=== PATIENT | female | born 1930 | race Caucasian/White ===

== ENCOUNTER → 2017-10-10 | Outpatient (CLI) | payer MEDICARE ==
[2017-10-10 11:45] LABS: NT-PRO BNP 14210 pg/mL (0-449)
== END | disposition home or self-care (01) ==
LOC: LAB 11:02
DX: R06.00 Dyspnea, unspecified (principal); I13.0 Hypertensive heart and chronic kidney disease with heart failure and stage 1 through stage 4 chronic kidney disease, or unspecified chronic kidney disease; I50.9 Heart failure, unspecified; N18.3 Chronic kidney disease, stage 3 (moderate); E03.9 Hypothyroidism, unspecified; J44.9 Chronic obstructive pulmonary disease, unspecified; I25.2 Old myocardial infarction
CPT/HCPCS: 83880

== ENCOUNTER → 2017-10-13 | Outpatient (CLI) | payer MEDICARE | END | disposition home or self-care (01) | LOC: KCIC CT 12:12 | DX: J43.8 Other emphysema (principal); K44.9 Diaphragmatic hernia without obstruction or gangrene; J16.8 Pneumonia due to other specified infectious organisms; M41.84 Other forms of scoliosis, thoracic region; R59.1 Generalized enlarged lymph nodes | CPT/HCPCS: 71250 ==

== ENCOUNTER → 2017-11-19 | Outpatient (CLI) | payer MEDICARE ==
[2016-08-27 14:25] VITALS: BP 119/66
[~2017-11-19] MED LIST: ALPR0.5T6 PO; AMIT25TA PO; ASPI-482 PO; BENA20TA4 PO; CALC600T4 PO; CLON0.1T PO; COLE1TAB2 PO; DIGO250T17 PO; FAMO-63 PO; FERR324T2 PO; FEXO60TA25 PO; FLUT9.9S NS; GREE1CAP5 PO; LEVO50TA5 PO; METO-269 PO; MULT1TAB52 PO; NISO20TA PO; NITR0.4T SL; OMEG100021 PO; REGADENOSON 0.4 MG/5 ML DISP.SYRIN. IV ONE; VIT1TABL89 PO
--- NOTE | 2017-11-19 12:42 | RAD ---
MR#: [id number] Date of Study: 11/19/2017 Ordering Physician: NATANAEL HILL, Referring Physician: KIRK MOYA Tech: RT Kathy Xiao) (N) APPROVED REPORT Test Type: Pharmacological Stress Nurse/Tech: Anna Ortiz R.N. Test Indications: dyspnea Cardiac History: Mi 1995, htn Medications: see ehr Medical History: see ehr Resting ECG: sr, wide QRS, ST depression noted in mult leads Resting Heart Rate: 86 bpm Resting Blood Pressure: 165/96mmHg Pretest Chest Pain: No chest pain Nurse/Tech Notes lungs cta, heart tones regular Consent: The procedure was explained to the patient in lay terms. Informed consent was witnessed. Carmelo eout was entered into [employer] History and Stress Test performed by RT Cami (R) (N) Pharm. Details Pharmacologic stress testing was performed using 0.4mg per 5ml of regadenoson given intravenously ove r 7-10 seconds. Stress Symptoms No chest pain or symptoms. POST EXERCISE Reason for Termination: Infusion complete Target HR: No Max HR: 132 bpm Max Blood Pressure: 156/76mmHg Chest Pain: No. Arrhythmia: Yes. occasional PAC ST Change: No. continued ST depression noted in mult leads INTERPRETATION Stress EKG Conclusion: No evidence of stress induced ischemic changes. Imaging Protocol IMAGE PROTOCOL: Rest Tc-99m/stress Tc-99m 1 day Rest: Stress: Viability: Radiopharm.Tc99m OjevwbfsnEp18h Sestamibi Qshf05hTd 34mCi Duration 13min. 13min. Img Date 11/19/2017 11/19/2017 Inj-Img [id number]. 50min. Rest Admin Site:IV - Right AntecubitalAdministrator:RT Kathy Almanza)(N) Stress Admin Site: IV - Right AntecubitalAdministrator: RT Kathy Almanza)(N) STRESS DATA End Diast. Vol.57.0mlLVEDV index BSA37.0ml End Syst. Vol.26.0mlLVESV index BSA16.0ml Myocardial Dddo180.0gEject. Dnqmbatp37.0% Stress Scores Regional WT3.00Summed WT24.00 Regional WM1.00Summed WM26.00 LV Perfusion Moderate sized, severe in intensity reversible apical perfusion defect suggestive of ischemia in the distal LAD territory with TID suggestive of multivessel disease. Wall Motion Low normal LV function LV Perf. Quant 17 Seg. SSS5.00 17 Seg. SRS0.00 17 Seg. SDS5.00 Stress Defect Extent (% LAD)31.30Rest Defect Extent (% LAD)0.00Rev. Defect Extent (% LAD)31.30 Stress Defect Extent (% LCX) 0.00Rest Defect Extent (% LCX)0.00Rev. Defect Extent (% LCX)0.00 Stress Defect Extent (% RCA)0.00Rest Defect Extent (% RCA)0.00Rev. Defect Extent (% RCA)0.00 Stress Defect Extent (% YEVGENIY)14.60Rest Defect Extent (% YEVGENIY)0.00Rev. Defect Extent (% YEVGENIY)14.30 Other Information Quality:Average Risk Assessment: Moderate-High Risk Conclusion 1. No evidence of stress induced EKG changes. 2. 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 3. Low normal EF at 53% 4. Moderate to high risk study Signed by : Rudy Tam, Electronically Approved : 11/19/2017 12:42:29
== END | disposition home or self-care (01) ==
LOC: NM 08:53
PROVIDERS: ATTEND Internal Medicine Cardiovascular Disease
DX: R06.09 Other forms of dyspnea (principal); I13.0 Hypertensive heart and chronic kidney disease with heart failure and stage 1 through stage 4 chronic kidney disease, or unspecified chronic kidney disease; I50.9 Heart failure, unspecified; N18.3 Chronic kidney disease, stage 3 (moderate); E78.00 Pure hypercholesterolemia, unspecified; J43.8 Other emphysema; I25.10 Atherosclerotic heart disease of native coronary artery without angina pectoris; E03.9 Hypothyroidism, unspecified; Z87.891 Personal history of nicotine dependence; Z90.49 Acquired absence of other specified parts of digestive tract
CPT/HCPCS: 78452; 93017; 96374; 96375; 96376; A9500; J2785

== ENCOUNTER 2017-11-28 09:09 | Observation (INO) | payer MEDICARE ==
[2017-11-28] VITALS (13 sets, daily range): BP systolic 124–157; BP diastolic 65–74
[~2017-11-28] VITALS: Ht 162.6 cm; Wt 52.2 kg
[~2017-11-28 09:09] MED LIST changes: -REGADENOSON 0.4 MG/5 ML DISP.SYRIN. IV ONE
[2017-11-28] MEDS ORDERED: LIDOCAINE 1% PF 2 ML VIAL. ONE (09:30)
[2017-11-28] MEDS ORDERED: HEPARIN for ARTERIAL LINE 0 ML ONE (09:30)
[2017-11-28] MEDS ORDERED: IODIXANOL 320 MG/ML 100 ML VIAL. ONE (09:30)
--- NOTE | 2017-11-28 10:06 | PDOC ---
MODERATE SEDATION ASSESSMENT RISKS/ALTERNATIVES Risks/Alternatives Risks and alternatives of this type of sedation and procedure discussed with: RISK/ALTERNATIVES: Patient H & P ON CHART H & P H & P on chart and reviewed for co-morbid conditions and appropriate labs. H&P ON CHART: Yes STATUS PREG STATUS ASSESSED: N/A MEDS/ALLERGIES REVIEWED Meds/Allergies Reviewed Medications and Allergies including time and route of recently administered narcotics and sedatives. MEDS/ALLERGIES REVIEWED: Yes ASA RATING ASA RATING: II AIRWAY ASSESSMENT Airway Assessment Airway patency, oral function limitations, presence of caps, crowns, dentures, partials, and ability to extend neck assessed. AIRWAY ASSESSMENT: Yes MALLAMPATI SCORE MALLAMPATI SCORE: II PRE-SEDATION ASSESSMENT PRE-SEDATION ASSESSMENT: Yes NATANAEL HILL MD Nov 28, 2017 10:06
[2017-11-28] MEDS ORDERED: diphenhydrAMINE 50 MG/ML VIAL ONE (10:09)
[2017-11-28] MEDS ORDERED: FAMOTIDINE 20 MG/2 ML VIAL ONE (10:09)
[2017-11-28] MEDS ORDERED: methylPREDNISolone SOD SUCC PF 125 MG/2 ML VIAL. ONE (10:09)
[2017-11-28] MEDS ORDERED: ATOR10TA60 PO (10:11)
[2017-11-28] MEDS ORDERED: UBID50TA PO (10:11)
[2017-11-28] MEDS ORDERED: BIOT10004 PO (10:11)
[2017-11-28] MEDS ORDERED: CHOL10003 PO (10:11)
[2017-11-28] MEDS ORDERED: LISI-334 PO (10:11)
[2017-11-28] MEDS ORDERED: FEXO1TAB27 PO (10:11)
[2017-11-28] MEDS ORDERED: FURO20TA3 PO (10:11)
[2017-11-28] MEDS ORDERED: FAMOTIDINE 20 MG/2 ML VIAL IVP ONE (10:30)
[2017-11-28] MEDS ORDERED: methylPREDNISolone SOD SUCC PF 125 MG/2 ML VIAL. IV ONE (10:30)
[2017-11-28] MEDS ORDERED: diphenhydrAMINE 50 MG/ML VIAL IVP ONE (10:30)
[2017-11-28] MEDS ORDERED: diphenhydrAMINE 50 MG/ML VIAL IM ONE (10:30)
[2017-11-28 10:49] LABS: CALCIUM 9.5 mg/dL (8.5-10.1); CREATININE 1.2 mg/dL (0.6-1.0); GFR 42.3; POTASSIUM 5.1 mmol/L (3.5-5.1)
[2017-11-28] MEDS ORDERED: HEPARIN for IV BOLUS 10,000 UNIT/10 ML VIAL. ONE (10:49)
[2017-11-28] MEDS ORDERED: VERAPAMIL 5 MG/2 ML VIAL. ONE (10:49)
[2017-11-28] MEDS ORDERED: fentaNYL PF VIAL 100 MCG/2 ML VIAL ONE (10:49)
[2017-11-28] MEDS ORDERED: MIDAZOLAM HCL/PF 2 MG/2 ML VIAL. ONE (10:49)
[2017-11-28] MEDS ORDERED: NITROGLYCERIN 200 MCG/2 ML SYRINGE FOR CATH/VASC LAB. ONE (10:50)
[2017-11-28 11:02] LABS: PROTHROMBIN TIME PATIENT 14.1 SEC (11.7-14.0)
[2017-11-28] MEDS ORDERED: BIVALIRUDIN 250 MG VIAL. IV ONE ×2 (11:12→11:30)
[2017-11-28] MEDS ORDERED: IODIXANOL 320 MG/ML 100 ML VIAL. IART ONE (11:30)
[2017-11-28] MEDS ORDERED: NITROGLYCERIN 200 MCG/2 ML SYRINGE FOR CATH/VASC LAB. IART ONE (11:30)
[2017-11-28] MEDS ORDERED: LIDOCAINE 2% PF 2ML VIAL. INJ ONE (11:30)
[2017-11-28] MEDS ORDERED: fentaNYL PF VIAL 100 MCG/2 ML VIAL IV ONE (11:30)
[2017-11-28] MEDS ORDERED: MIDAZOLAM HCL/PF 2 MG/2 ML VIAL. IV ONE (11:30)
[2017-11-28] MEDS ORDERED: CLOPIDOGREL BISULFATE 75 MG TABLET PO ONE (11:30)
[2017-11-28] MEDS ORDERED: VERAPAMIL 5 MG/2 ML VIAL. IART ONE (11:30)
[2017-11-28] MEDS ORDERED: HEPARIN for IV BOLUS 10,000 UNIT/10 ML VIAL. IART ONE (11:30)
[2017-11-28] MEDS ORDERED: ASPIRIN 325 MG TABLET ONE (11:30)
[2017-11-28] MEDS ORDERED: ASPIRIN 325 MG TABLET PO ONE (12:00)
[2017-11-28] MEDS ORDERED: LIDOCAINE 1% PF 2 ML VIAL. INJ ONE (12:00)
--- NOTE | 2017-11-28 12:00 | CARD ---
MR#: [id number] Date of Study: 11/28/2017 Ordering Physician: NATANAEL SNYDER, Referring Physician: NATANAEL SNYDER Tech: RT Jacob (R) APPROVED REPORT Technologist: RT Jacob (R) Nurse: Anna Ortiz R.N. Procedure(s) performed: 1. Left heart catheterization, selective coronary angiography and left ventr iculography via right transradial approach 2. Successful PCI/drug eluting stent placement to the right coronary artery Moderate sedation: 50 minutes INDICATION The indication(s) include : Dyspnea on exertion and positive stress test. PROCEDURE NARRATIVE After explaining the risks, benefits and alternative options, informed consent was obtained from edi ent. Patient was brought to the cardiac Learning Administrator and right wrist was prepped and draped in the usual fashion after confirming a positive modified Christos's test. Arterial access was obtained in the rig t radial artery and a 6 Namibian sheath was inserted. 6 [place]ian Varinder catheter was used to perform segun ective angiography of the left and right coronary arteries. 6 [place] pigtail catheter was used to pe rform left ventriculography. The following findings were noted. FINDINGS 1. Hemodynamics: Left ventricular end-diastolic pressure of 10 mmHg. There was a pullback gradient of 10 mmHg across the aortic valve. 2. Left ventriculography: Normal left ventricle systolic function with ejection fraction estimated at 70%. No significant mitral regurgitation seen. 3. Coronary angiography: a. The left main coronary artery arose from the left sinus of Valsalva, gave rise to the left anteri or descending and left circumflex arteries and did not show any significant stenosis. b. The left anterior descending artery showed 40-50% stenosis in the midsegment. The diagonal branch which is a small to medium caliber vessel showed 90% stenosis in the midsegment. c. The left circumflex artery did not show any significant stenosis. d. The right coronary artery was a large and dominant vessel arising from the right sinus of Valsalv a that showed 70-80% stenosis involving the midsegment. INTERVENTION The right coronary artery was engaged with a 6 [place] JR4 guide catheter and the stenosis in the mids egment was crossed with a 0.014 inch [employer] guidewire. This was predilated with a 3.0 x 15 mm balloon following which this was successfully treated with a 3.0 x 15 mm resolute cruz drug-eluting stent. Follow-up angiography showed resolution of the stenosis to 0% with REJI-3 distal flow. Patient tolerated the procedure well. Hemostasis was achieved using TR band. There were no immediate complic ations. Conclusion 1. 70-80% stenosis involving the right coronary artery, 40-50% stenosis involving the left anterior descending artery and 90% stenosis in a small to medium caliber diagonal branch. 2. Successful PCI/drug eluting stent placement to the right coronary artery. 3. Normal left ventricle systolic function with ejection fraction estimated at 70%. Recommendations Aspirin 325 mg daily for one month and 81 mg daily thereafter Plavix 75 mg daily Signed by : Natanael Snyder, Electronically Approved : 11/28/2017 11:59:59
[2017-11-28] MEDS ORDERED: NITROGLYCERIN SUBLINGUAL 0.4 MG BOTTLE OF 25. SL PRN (12:15)
[2017-11-28] MEDS ORDERED: ACETAMINOPHEN 325 MG TABLET. PO PRN (12:15)
[2017-11-28] MEDS ORDERED: IV 1/2 NORMAL SALINE 1,000 ML IV SCH (12:30)
[2017-11-28] MEDS: LEVOTHYROXINE 75 MCG TABLET PO SCH (15:15)
[2017-11-28] MEDS: METOPROLOL SUCC 24HR ER 50 MG TAB.ER.24H. PO SCH (15:16)
[2017-11-28] MEDS ORDERED: ATORVASTATIN CALCIUM 10 MG TABLET. PO SCH (21:00)
[2017-11-28] MEDS: LISINOPRIL 20 MG TABLET PO SCH (21:20)
[2017-11-28] MEDS: ALPRAZolam 0.5 MG TABLET PO SCH (22:21)
[2017-11-28] MEDS ORDERED: IV NORMAL SALINE 1000ML BAG 1,000 ML IV ONE (22:30)
[2017-11-29 03:23] VITALS: BP 158/75
[2017-11-29] MEDS: LEVOTHYROXINE 75 MCG TABLET PO SCH (06:16)
[2017-11-29 07:30] VITALS: BP 122/70
[2017-11-29] MEDS ORDERED: CLOPIDOGREL BISULFATE 75 MG TABLET PO SCH (08:00)
[2017-11-29] MEDS ORDERED: ASPIRIN ENTERIC COATED 325 MG TABLET.DR. PO SCH (08:00)
[2017-11-29 08:03] LABS: BILIRUBIN,URINE NEGATIVE (NEG); COLOR,URINE YELLOW; NITRITE,URINE NEGATIVE (NEG); PROTEIN,URINE NEGATIVE (NEG-TRACE); UROBILINOGEN,URINE 0.2 mg/dL (0.2 mg/dL)
[2017-11-29 08:13] LABS: BACTERIA,URINE FEW /HPF (0-FEW); CLARITY,URINE HAZY; RBC,URINE OCC /HPF (0-2); SQUAMOUS EPITHELIAL CELL,UR FEW /LPF; WBC,URINE TNTC /HPF (0-4)
[2017-11-29] MEDS: LISINOPRIL 20 MG TABLET PO SCH (08:15)
[2017-11-29] MEDS: ALPRAZolam 0.5 MG TABLET PO SCH (08:15)
[2017-11-29 08:16] VITALS: BP 122/70
[2017-11-29] MEDS: METOPROLOL SUCC 24HR ER 50 MG TAB.ER.24H. PO SCH (08:16)
[2017-11-29] MEDS ORDERED: CLOP75TA PO (11:31)
[2017-11-29] MEDS ORDERED: ASPI325T8 PO (11:31)
--- NOTE | 2017-11-29 12:47 | PDOC ---
PROGRESS NOTES Subjective Subjective Patient seen and examined The patient looks and feels well. She denies any pain. Objective Objective Vital Signs Date Time Temp Pulse Resp B/P (MAP) Pulse Ox O2 Delivery O2 Flow Rate FiO2 11/29/17 08:16 81 122/70 11/29/17 07:48 Room Air 11/29/17 07:30 97.8 20 98 97.8 11/28/17 15:00 2.0 Intake and Output 11/29/17 07:00 Intake Total 909 ml Output Total 50 ml Balance 859 ml Intake Oral 340 ml IV Total 569 ml Output Urine Total 50 ml # Voids 1 Physical Exam Abdomen: Normal bowel sounds Heart: Regular rate General: No acute distress Lungs: Clear to auscultation Assessment Assessment 1. Coronary artery disease. Status post drug-eluting stent to the right coronary artery yesterday. Stable overnight. We'll discharge later today. We'll continue present home medications plus Plavix 75 mg a day and increase aspirin to 325 mg a day. This was discussed with the patient and her family. Follow-up in 3-4 weeks. Comment Review of Relevant I have reviewed the following items mikie (where applicable) has been applied. Labs Laboratory Tests Test 11/28/17 10:15 11/29/17 06:08 Prothrombin Time 14.1 SEC (11.7-14.0) Prothromb Time International Ratio 1.1 (0.8-1.1) Sodium Level 130 mmol/L (136-145) Potassium Level 5.1 mmol/L (3.5-5.1) Chloride Level 97 mmol/L (98-107) Carbon Dioxide Level 29 mmol/L (21-32) Anion Gap 4 (6-14) Blood Urea Nitrogen 19 mg/dL (7-20) Creatinine 1.2 mg/dL (0.6-1.0) Estimated GFR (Cockcroft-Gault) 42.3 Glucose Level 99 mg/dL (70-99) Calcium Level 9.5 mg/dL (8.5-10.1) Urine Collection Type Unknown Urine Color Yellow Urine Clarity Hazy Urine pH 6.0 Urine Specific [place] >=1.030 Urine Protein Negative mg/dL (NEG-TRACE) Urine Glucose (UA) Negative mg/dL (NEG) Urine Ketones (Stick) Negative mg/dL (NEG) Urine Blood Negative (NEG) Urine Nitrite Negative (NEG) Urine Bilirubin Negative (NEG) Urine Urobilinogen Dipstick 0.2 mg/dL (0.2 mg/dL) Urine Leukocyte Esterase Large (NEG) Urine RBC Occ /HPF (0-2) Urine WBC Tntc /HPF (0-4) Urine Squamous Epithelial Cells Few /LPF Urine Bacteria Few /HPF (0-FEW) Laboratory Tests Test 11/29/17 06:08 Urine Collection Type Unknown Urine Color Yellow Urine Clarity Hazy Urine pH 6.0 Urine Specific [place] >=1.030 Urine Protein Negative mg/dL (NEG-TRACE) Urine Glucose (UA) Negative mg/dL (NEG) Urine Ketones (Stick) Negative mg/dL (NEG) Urine Blood Negative (NEG) Urine Nitrite Negative (NEG) Urine Bilirubin Negative (NEG) Urine Urobilinogen Dipstick 0.2 mg/dL (0.2 mg/dL) Urine Leukocyte Esterase Large (NEG) Urine RBC Occ /HPF (0-2) Urine WBC Tntc /HPF (0-4) Urine Squamous Epithelial Cells Few /LPF Urine Bacteria Few /HPF (0-FEW) Medications Current Medications Iodixanol (Visipaque 320) 100 ml STK-MED ONCE .ROUTE ; Start 11/28/17 at 09:30; Stop 11/28/17 at 09:31; Status DC Lidocaine HCl (Xylocaine-Mpf 1% 2ml Vial) 2 ml STK-MED ONCE .ROUTE ; Start 11/28 at 09:30; Stop 11/28/17 at 09:31; Status DC Heparin Sodium/ Sodium Chloride 0 ml @ As Directed STK-MED ONCE .ROUTE ; Start 11/28/17 at 09:30; Stop 11/28/17 at 09:31; Status DC Methylprednisolone Sodium Succinate (SOLU-Medrol 125MG VIAL) 125 mg 1X ONCE IV Last administered on 11/28/17at 10:15; Start 11/28/17 at 10:30; Stop 11/28/17 at 10:31; Status DC Famotidine (Pepcid Vial) 20 mg 1X ONCE IVP Last administered on 11/28/17at 10: 15; Start 11/28/17 at 10:30; Stop 11/28/17 at 10:31; Status DC Diphenhydramine HCl (Benadryl) 25 mg 1X ONCE IM ; Start 11/28/17 at 10:30; Stop 11/28/17 at 10:31; Status DC Diphenhydramine HCl (Benadryl) 50 mg STK-MED ONCE .ROUTE ; Start 11/28/17 at 10: 09; Stop 11/28/17 at 10:10; Status DC Famotidine (Pepcid Vial) 20 mg STK-MED ONCE .ROUTE ; Start 11/28/17 at 10:09; Stop 11/28/17 at 10:10; Status DC Methylprednisolone Sodium Succinate (SOLU-Medrol 125MG VIAL) 125 mg STK-MED ONCE .ROUTE ; Start 11/28/17 at 10:09; Stop 11/28/17 at 10:10; Status DC Diphenhydramine HCl (Benadryl) 25 mg 1X ONCE IVP Last administered on at 10:18; Start 11/28/17 at 10:30; Stop 11/28/17 at 10:31; Status DC Fentanyl Citrate (Fentanyl 2ml Vial) 100 mcg STK-MED ONCE .ROUTE ; Start at 10:49; Stop 11/28/17 at 10:50; Status DC Midazolam HCl (Versed) 2 mg STK-MED ONCE .ROUTE ; Start 11/28/17 at 10:49; Stop 11/28/17 at 10:50; Status DC Verapamil HCl (Verapamil) 5 mg STK-MED ONCE .ROUTE ; Start 11/28/17 at 10:49; Stop 11/28/17 at 10:50; Status DC Heparin Sodium (Porcine) (Heparin Sodium) 10,000 unit STK-MED ONCE .ROUTE ; Start 11/28/17 at 10:49; Stop 11/28/17 at 10:50; Status DC Nitroglycerin (Nitroglycerin) 200 mcg STK-MED ONCE .ROUTE ; Start 11/28/17 at 10 :50; Stop 11/28/17 at 10:51; Status DC Bivalirudin (Angiomax) 250 mg STK-MED ONCE IV ; Start 11/28/17 at 11:12; Stop at 11:13; Status DC Nitroglycerin (Nitroglycerin) 200 mcg 1X ONCE IART Last administered on at 11:42; Start 11/28/17 at 11:30; Stop 11/28/17 at 11:34; Status DC Verapamil HCl (Verapamil) 2.5 mg 1X ONCE IART Last administered on 11/28/17at 11:50; Start 11/28/17 at 11:30; Stop 11/28/17 at 11:34; Status DC Heparin Sodium (Porcine) (Heparin Sodium) 2,500 unit 1X ONCE IART Last administered on 11/28/17at 11:48; Start 11/28/17 at 11:30; Stop 11/28/17 at 11:37 ; Status DC Heparin Sodium/ Sodium Chloride (HEPARIN for ARTERIAL LINE FLUSH) 1,000 unit 1X ONCE IART Last administered on 11/28/17at 11:42; Start 11/28/17 at 11:30; Stop 11/28/17 at 11:34; Status DC Midazolam HCl (Versed) 1 mg 1X ONCE IV Last administered on 11/28/17at 11:47; Start 11/28/17 at 11:30; Stop 11/28/17 at 11:34; Status DC Fentanyl Citrate (Fentanyl 2ml Vial) 50 mcg 1X ONCE IV Last administered on at 11:47; Start 11/28/17 at 11:30; Stop 11/28/17 at 11:34; Status DC Iodixanol (Visipaque 320) 100 ml 1X ONCE IART Last administered on 11/28/17at 11:42; Start 11/28/17 at 11:30; Stop 11/28/17 at 11:34; Status DC Bivalirudin (Angiomax) 250 mg 1X ONCE IV Last administered on 11/28/17at 11:47 ; Start 11/28/17 at 11:30; Stop 11/28/17 at 11:34; Status DC Clopidogrel Bisulfate (Plavix) 600 mg 1X ONCE PO Last administered on at 11:42; Start 11/28/17 at 11:30; Stop 11/28/17 at 11:34; Status DC Aspirin (Tatiana Aspirin) 325 mg 1X ONCE PO Last administered on 11/28/17at 11:42 ; Start 11/28/17 at 12:00; Stop 11/28/17 at 12:01; Status DC Lidocaine HCl (Xylocaine-Mpf 2% Vial) 1 ml 1X ONCE INJ ; Start 11/28/17 at 11: 30; Stop 11/28/17 at 11:37; Status DC Aspirin (Tatiana Aspirin) 325 mg STK-MED ONCE .ROUTE ; Start 11/28/17 at 11:30; Stop 11/28/17 at 11:31; Status DC Lidocaine HCl (Xylocaine-Mpf 1% 2ml Vial) 1 ml 1X ONCE INJ Last administered on 11/28/17at 11:00; Start 11/28/17 at 12:00; Stop 11/28/17 at 12:01; Status DC Sodium Chloride 1,000 ml @ 100 mls/hr Q10H IV ; Start 11/28/17 at 12:30; Stop 11/28/17 at 22:11; Status DC Aspirin (Ecotrin) 325 mg DAILYWBKFT PO Last administered on 11/29/17at 08:16; Start 11/29/17 at 08:00 Clopidogrel Bisulfate (Plavix) 75 mg DAILYWBKFT PO Last administered on at 08:16; Start 11/29/17 at 08:00 Acetaminophen (Tylenol) 650 mg PRN Q6HRS PRN PO MILD PAIN / TEMP; Start at 12:15 Nitroglycerin (Nitrostat) 0.4 mg PRN Q5MIN PRN SL CHEST PAIN; Start 11/28/17 at 12:15 Atorvastatin Calcium (Lipitor) 10 mg QHS PO Last administered on 11/28/17at 21: 18; Start 11/28/17 at 21:00 Lisinopril (Prinivil) 20 mg BID PO Last administered on 11/29/17at 08:15; Start 11/28/17 at 21:00 Levothyroxine Sodium (Synthroid) 75 mcg DAILY07 PO Last administered on at 06:16; Start 11/28/17 at 14:00 Metoprolol Succinate (Toprol Xl) 50 mg DAILY PO Last administered on 11/29/17at 08:16; Start 11/28/17 at 14:00 Alprazolam (Xanax) 0.5 mg TID PO Last administered on 11/29/17at 08:15; Start at 22:30 Sodium Chloride 1,000 ml @ 75 mls/hr 1X ONCE IV Last administered on at 22:22; Start 11/28/17 at 22:30; Stop 11/29/17 at 11:49; Status DC Active Scripts Active Reported Clopidogrel (Clopidogrel Bisulfate) 75 Mg Tablet 1 Tab PO DAILY Aspirin 325 Mg Tablet 1 Tab PO DAILY Furosemide 20 Mg Tablet 1 Tab PO DAILY Biotin 1,000 Mcg Tab.chew 1,000 Mcg PO DAILY Coq10 (Ubidecarenone) 50 Mg Tab.chew 50 Mg PO Vitamin D3 (Cholecalciferol (Vitamin D3)) 1,000 Unit Tablet 0.5 Tab PO DAILY Jenise-D 12 Hour Tablet (Fexofenadine/Pseudoephedrine) 1 Each Tab.er.12h 1 Tab PO BID Atorvastatin Calcium 10 Mg Tablet 1 Tab PO DAILY Lisinopril 20 Mg Tablet 1 Tab PO BID Cardio Tea (Green Tea [place] Extract) 1 Each Capsule 1 Each PO DAILY Alprazolam 0.5 Mg Tablet 1 Tab PO TID Ferrous Gluconate 324 Mg Tablet 324 Mg PO DAILY Multivitamins (Multivitamin) 1 Each Tablet 1 Tab PO DAILY Jenise Allergy (Fexofenadine Hcl) 60 Mg Tablet 60 Mg PO PRN BID PRN Flonase Allergy Relief (Fluticasone Propionate) 9.9 Ml [place].susp 2 Sprays NS PRN DAILY PRN Nitrostat (Nitroglycerin) 0.4 Mg Tab.subl 0.4 Mg SL PRN Q5MIN PRN Amitriptyline Hcl 25 Mg Tablet 1 Tab PO QHS Benazepril Hcl 20 Mg Tablet 1 Tab PO DAILY Clonidine Hcl 0.1 Mg Tablet 0.1 Mg PO TID Toprol Xl (Metoprolol Succinate) 50 Mg Tab.er.24h 1 Tab PO DAILY Levothyroxine Sodium 50 Mcg Tablet 1.5 Tab PO DAILY Vitals/I & O Vital Sign - Last 24 Hours 11/28/17 11/28/17 11/28/17 11/28/17 12:50 13:19 14:04 14:34 Pulse 64 60 62 60 B/P (MAP) 138/66 (90) 126/68 (87) 141/65 (90) 131/72 (91) 11/28/17 11/28/17 11/28/17 11/28/17 15:00 15:04 15:16 19:40 Temp 98.2 97.4 98.2 97.4 Pulse 72 68 85 75 Resp 18 B/P (MAP) 137/69 (91) 143/73 (96) 143/73 133/68 (89) Pulse Ox 95 95 O2 Delivery Room Air Room Air O2 Flow Rate 2.0 11/28/17 11/28/17 11/28/17 11/29/17 20:00 21:20 23:52 03:23 Temp 98.1 98.7 98.1 98.7 Pulse 76 76 95 Resp 20 22 B/P (MAP) 125/63 134/68 (90) 158/75 (102) Pulse Ox 92 94 O2 Delivery Room Air Room Air Room Air 11/29/17 11/29/17 11/29/17 11/29/17 07:30 07:48 08:15 08:16 Temp 97.8 97.8 Pulse 81 81 81 Resp 20 B/P (MAP) 122/70 (87) 122/70 122/70 Pulse Ox 98 O2 Delivery Room Air Room Air Intake and Output 11/28/17 11/28/17 11/29/17 15:00 23:00 07:00 Intake Total 240 ml 669 ml Output Total 50 ml Balance 240 ml 619 ml MAYO LOZANO MD Nov 29, 2017 12:47
== END 2017-11-29 13:52 | disposition home or self-care (01) ==
LOC: CCL 09:09 → 2 NORTH 11:20
PROVIDERS: ADMIT Internal Medicine Cardiovascular Disease; ATTEND Internal Medicine Cardiovascular Disease
DX: I25.10 Atherosclerotic heart disease of native coronary artery without angina pectoris (principal); I12.9 Hypertensive chronic kidney disease with stage 1 through stage 4 chronic kidney disease, or unspecified chronic kidney disease; N18.9 Chronic kidney disease, unspecified; E78.5 Hyperlipidemia, unspecified; E03.9 Hypothyroidism, unspecified; Z79.02 Long term (current) use of antithrombotics/antiplatelets
CPT/HCPCS: 36415; 80048; 81001; 85610; 87086; 93458; 96374; 96375; C1725; C1769; C1874; C1887; C1892; C9600; G0378; G0379; J0583; J1200; J1644; J2250; J2930; J3010; J3490; J7030; S0028; 92928; 99152; 99153

== ENCOUNTER 2017-11-30 12:23 | Inpatient (IN) | payer MEDICARE ==
[~2017-11-30] VITALS: Ht 162.6 cm; Wt 51.9 kg
[~2017-11-30 12:23] MED LIST changes: +ASPI325T8 PO; +ATOR10TA60 PO; +BIOT10004 PO; +CHOL10003 PO; +CLOP75TA PO; +FEXO1TAB27 PO; +FURO20TA3 PO; +LISI-334 PO; +UBID50TA PO
--- NOTE | 2017-11-30 15:41 | PHYS DOC ---
Past Medical History Past Medical History: Anxiety, CAD, High Cholesterol, Hypertension, Hypothyroid , PR, Other Additional Past Medical Histor: COLITIS, SEASONAL ALLERGIES Past Surgical History: Cholecystectomy, Other Additional Past Surgical Histo: ANGIOPLASTY WITH STENT Alcohol Use: None Drug Use: None Adult General Chief Complaint Chief Complaint: POST-OP PROBLEM HPI HPI Patient is a 87 year old female who presents with pain and swelling to the right wrist. The patient underwent cardiac catheterization on November 28. Following the procedure, the patient was discharged to home. She did subsequently develop some pain and swelling and ecchymosis at the site of puncture in the right wrist. She presents to the ER today with concerns that the bruising and pain has worsened. She has not had a fever or chills. She has no other complaints today. She has been eating and drinking normally. No nausea or vomiting. No abdominal pain. Normal elimination patterns. Review of Systems Review of Systems Constitutional: Denies fever or chills HENT: Denies nasal congestion Respiratory: Denies cough or shortness of breath Cardiovascular: No additional information GI: Denies abdominal pain, nausea : Denies dysuria or hematuria Musculoskeletal: Denies back pain Integument: Denies rash or skin lesions Endocrine: Denies polyuria All other systems were reviewed and found to be within normal limits, except as documented in this note. Current Medications Current Medications Current Medications Medications (Trade) Dose Ordered Sig/Karel Start Time Stop Time Status Last Admin Dose Admin Acetaminophen (Tylenol) 650 mg PRN Q4HRS PRN 11/30/17 16:15 12/01/17 16:14 Morphine Sulfate (Morphine Sulfate) 2 mg PRN Q2HR PRN 11/30/17 16:15 12/01/17 16:14 Ondansetron HCl (Zofran) 4 mg PRN Q8HRS PRN 11/30/17 16:15 12/01/17 16:14 Sodium Chloride 1,000 ml @ 70 mls/hr [id number] 11/30/17 23:59 12/01/17 23:58 Allergies Allergies Allergies Coded Allergies Type Severity Reaction Last Updated Verified iodine Allergy Intermediate 08/26/16 Yes Physical Exam Physical Exam Constitutional: Well developed, well nourished, no acute distress HENT: Normocephalic, atraumatic, bilateral external ears normal, oropharynx moist Neck: Normal range of motion, no tenderness Cardiovascular:Heart rate regular rhythm Lungs & Thorax: Bilateral breath sounds clear to auscultation Abdomen: Bowel sounds normal, soft Skin: Warm, dry, no erythema, no rash Extremities: area of swelling over the right radial artery on the volar aspect of the wrist. Extensive ecchymosis. Distal cap refill < 2 seconds. Palpable radial/ulnar pulses are present. Neurologic: Alert and oriented X 3 Psychologic: Affect normal Current Patient Data Vital Signs Vital Signs Date Time Temp Pulse Resp B/P (MAP) Pulse Ox O2 Delivery O2 Flow Rate FiO2 11/30/17 12:32 97.6 94 20 169/86 (113) 94 Room Air 97.6 EKG EKG [] Radiology/Procedures Radiology/Procedures [] Course & Med Decision Making Course & Med Decision Making Pertinent Labs and Imaging studies reviewed. (See chart for details) Patient is evaluated in the emergency department for post procedure complication. She had an arterial stick in the right radial artery 3 days earlier. Ultrasound is ordered to evaluate for possible pseudoaneurysm. 15:30: Pseudoaneurysm is confirmed via ultrasound. Discussed this patient with Dr. Morse. Also discussed with Dr. Chavez, vascular. Plan is to admit the patient. Vascular will evaluate inpatient. Pressure dressing applied to wrist. All results are reviewed and discussed with the patient and all of her questions are answered prior to admission. Baseline labs ordered in lieu of probable surgical intervention. PATIENT TO BE NPO AFTER MIDNIGHT OK TO CONTINUE ANTI-PLATELET THERAPIES Dragon Disclaimer Dragon Disclaimer This electronic medical record was generated, in whole or in part, using a voice recognition dictation system. Departure Departure Referrals: DANIEL MALDONADO (PCP) KEN MORENO DO Nov 30, 2017 15:41
--- NOTE | 2017-11-30 16:00 | RAD ---
LIMITED ARTERIAL DUPLEX EXAMINATION OF THE RIGHT UPPER EXTREMITY Clinical indications: Status post right radial artery puncture now with pain and swelling. FINDINGS: Duplex sonography of the area of swelling of the puncture site of the distal right forearm was performed including grayscale evaluation and color flow and waveform spectral analysis. There is a pseudoaneurysm present here extending to the radial artery. Peak systolic flow velocity measurement within the neck of the aneurysm is 188 cm/s. Pseudoaneurysm measures 2.2 cm in greatest dimension. The peak systolic flow velocity measurement of the proximal right radial artery is 54 cm/s and the mid right radial artery is 74 cm/s and the distal radial artery is 75 cm/s. 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 Electronically signed by: Jaswant Marcano MD (11/30/2017 3:56 PM) [facility]
[2017-11-30] MEDS ORDERED: ACETAMINOPHEN 325 MG TABLET. PO PRN (16:15)
[2017-11-30] MEDS ORDERED: ONDANSETRON PF 4 MG/2 ML VIAL. IV PRN (16:15)
[2017-11-30] MEDS ORDERED: MORPHINE SULFATE 2 MG/ML VIAL. IV PRN (16:15)
[2017-11-30] MEDS ORDERED: ALPRAZolam 1 MG TABLET PO ONE (16:30)
[2017-11-30] MEDS: ALPRAZolam 0.5 MG TABLET PO PRN ×2 (17:14→21:17)
[2017-11-30] MEDS: LISINOPRIL 20 MG TABLET PO SCH (17:15)
[2017-11-30] MEDS ORDERED: ALPRAZolam 0.5 MG TABLET PO ONE (17:15)
[2017-11-30 17:26] LABS: BASO % 0 % (0-3); EOS # 0.1 x10^3/uL (0.0-0.7); EOS % 1 % (0-3); HEMATOCRIT 39.1 % (36.0-47.0); HEMOGLOBIN 13.3 g/dL (12.0-15.5); LYMPH # 1.4 x10^3/uL (1.0-4.8); LYMPH % 14 % (24-48); MEAN CORPUSCULAR HEMOGLOBIN 31 pg (25-35); MEAN CORPUSCULAR HGB CONC 34 g/dL (31-37); MEAN CORPUSCULAR VOLUME 91 fL (79-100); MONO # 0.9 x10^3/uL (0.0-1.1); MONO % 9 % (0-9); NEUT # 7.7 x10^3uL (1.8-7.7); NEUT % 76 % (31-73); PLATELET COUNT 233 x10^3/uL (140-400); RED BLOOD COUNT 4.27 x10^6/uL (3.50-5.40); RED CELL DISTRIBUTION WIDTH 15.7 % (11.5-14.5); WHITE BLOOD COUNT 10.1 x10^3/uL (4.0-11.0)
[2017-11-30 17:40] LABS: PROTHROMBIN TIME PATIENT 13.9 SEC (11.7-14.0)
[2017-11-30 17:48] LABS: CALCIUM 9.7 mg/dL (8.5-10.1); CREATININE 1.3 mg/dL (0.6-1.0); GFR 38.6; POTASSIUM 4.6 mmol/L (3.5-5.1)
[2017-11-30 17:53] LABS: DIRECT BILIRUBIN 0.2 mg/dL (0.0-0.2); TOTAL BILIRUBIN 0.8 mg/dL (0.2-1.0); TOTAL PROTEIN 7.9 g/dL (6.4-8.2)
--- NOTE | 2017-11-30 18:05 | HP ---
ADMIT DATE: 11/30/2017 CHIEF COMPLAINT: Right arm swelling and pain and erythema after cardiac catheterization last week. HISTORY OF PRESENT ILLNESS: The patient is a pleasant 87-year-old female who had cardiac catheterization last week. She got a stent to the RCA. She has been doing well after that, but over the past couple of days, has been developing swelling in her right hand at the radial artery site where the catheter was inserted. We did some imaging here in the ER. She does have a pseudoaneurysm. Dr. Elaine spoke with Vascular Surgery. They are going to take her to the OR tomorrow. We are going to admit the patient. It should be noted the patient complains of severe pain and erythema and rates it at 10/10. PAST MEDICAL HISTORY: Anxiety, CAD, recent cardiac stent, hypertension, hyperlipidemia, hypothyroidism, myocardial infarction 28 years ago, colitis, allergic rhinitis, cholecystectomy. ALLERGIES: IODINE. FAMILY HISTORY: Coronary artery disease. SOCIAL HISTORY: She has been for 68 years. She does not drink, smoke or take drugs. MEDICATIONS: Reviewed, please refer to the MRAD. REVIEW OF SYSTEMS: GENERAL: No history of weight change, weakness or fevers. SKIN: No bruising, hair changes or rashes. EYES: No blurred, double or loss of vision. NOSE AND THROAT: No history of nosebleeds, hoarseness or sore throat. HEART: No history of palpitations, chest pain or shortness of breath on exertion. LUNGS: Denies cough, hemoptysis, wheezing or shortness of breath. GASTROINTESTINAL: Denies changes in appetite, nausea, vomiting, diarrhea or constipation. GENITOURINARY: No history of frequency, urgency, hesitancy or nocturia. NEUROLOGIC: Denies history of numbness, tingling, tremor or weakness. PSYCHIATRIC: No history of panic, anxiety or depression. ENDOCRINE: No history of heat or cold intolerance, polyuria or polydipsia. EXTREMITIES: She complains of right arm pain. PHYSICAL EXAMINATION: VITAL SIGNS: Temperature 97, pulse 80, respirations 18, blood pressure 116/86, O2 sat 94% on room air. GENERAL: She is alert, cooperative, very pleasant, delightful. Her is present. He is good support for her. Her son is also present. He is also good support for her. HEART: Normal S1, S2. LUNGS: Clear. ABDOMEN: Soft. EXTREMITIES: The right hand has a large hematoma at the base of the thumb right at the radials artery site. There is extravasation of the hematoma down towards the elbow, is swollen, is painful. ENDOCRINE: No thyromegaly. LYMPHATICS: No cervical nodes. HEMATOPOIETIC: She has got bruising on the right hand. LABORATORY DATA: White count 10, hemoglobin 13, platelets 233. ASSESSMENT AND PLAN: Pseudoaneurysm after cardiac catheterization. The patient is being admitted. We will consult Vascular Surgery. She understands she is going to surgery tomorrow. For now, we will monitor her labs, cardiac monitoring, home meds, PT, OT, wound care. Frequent labs. TREMAYNE BURK DO DR: TRAN/tony JOB#: [id number] / [id number]
[2017-11-30 18:46] VITALS: BP 151/105
[2017-11-30 19:30] VITALS: BP 164/103
[2017-11-30] MEDS: cloNIDine HCL 0.2 MG TABLET PO SCH ×2 (21:17→23:37)
[2017-11-30 23:16] VITALS: BP 139/91
[2017-11-30] MEDS: IV NORMAL SALINE 1000ML BAG 1,000 ML IV SCH (23:37)
[2017-12-01] VITALS (13 sets, daily range): BP systolic 103–148; BP diastolic 58–102
[2017-12-01 05:44] LABS: CALCIUM 8.7 mg/dL (8.5-10.1); CREATININE 1.1 mg/dL (0.6-1.0); GFR 46.8; POTASSIUM 3.9 mmol/L (3.5-5.1)
[2017-12-01] MEDS ORDERED: DEXAMETHASONE SOD PHOS 20 MG/5 ML VIAL. ONE ×2 (07:00→09:36)
[2017-12-01] MEDS ORDERED: ONDANSETRON PF 4 MG/2 ML VIAL. ONE ×2 (07:00→09:37)
[2017-12-01] MEDS ORDERED: PROPOFOL 20 ML IV ONE ×2 (07:00→09:36)
[2017-12-01] MEDS ORDERED: LIDOCAINE 2% PF Vial for OR 5 ML VIAL. ONE (07:00)
[2017-12-01] MEDS ORDERED: LIDOCAINE 1% PF 30 ML VIAL. ONE (07:11)
[2017-12-01] MEDS ORDERED: SURGICEL FIBRILLAR 1X2 EACH. ONE (07:11)
[2017-12-01] MEDS ORDERED: IV RINGERS,LACTATED 1000ML 1,000 ML IV SCH (07:47)
[2017-12-01] MEDS ORDERED: HYDROmorphone 2 MG/ML VIAL IV PRN (08:00)
[2017-12-01] MEDS ORDERED: LIDOCAINE 1% PF 2 ML VIAL. ID PRN (08:00)
[2017-12-01] MEDS ORDERED: fentaNYL PF VIAL 100 MCG/2 ML VIAL IV PRN (08:00)
[2017-12-01] MEDS ORDERED: MORPHINE SULFATE 2 MG/ML VIAL. IV PRN (08:00)
[2017-12-01] MEDS ORDERED: PROCHLORPERAZINE 10 MG/2 ML VIAL. IV PRN (08:00)
[2017-12-01] MEDS ORDERED: ONDANSETRON PF 4 MG/2 ML VIAL. IV PRN (08:00)
[2017-12-01] MEDS ORDERED: HEPARIN SODIUM 5,000 UNIT in IV NORMAL SALINE 500ML BAG 500 ML IRR ONE (08:00)
--- NOTE | 2017-12-01 08:00 | PDOC ---
Provider Note Provider Note Vascular Surgery Consult dictated 87 year old female with right radial artery 2.5cm pseudoaneurysm secondary to recent cardiac cath. Will proceed with surgical repair today. RICHARD AMES MD Dec 01, 2017 08:00
[2017-12-01] MEDS ORDERED: HEPARIN for IV BOLUS 10,000 UNIT/10 ML VIAL. ONE (08:46)
[2017-12-01] MEDS ORDERED: PROTAMINE 50 MG/5 ML VIAL. IV ONE (09:36)
[2017-12-01] MEDS ORDERED: SEVOFLURANE 61 TO 120 MINUTES. IH ONE (09:37)
[2017-12-01] MEDS ORDERED: PHENYLEPHRINE in 0.9% NACL PF 1 MG/10 ML SYRINGE. IV ONE (09:37)
--- NOTE | 2017-12-01 10:04 | PDOC4 ---
OPERATIVE NOTE: Operative Report Dictated Pre-op: right radial artery pseudoaneurysm Post-op: same Surgeon: Dr. Chavez Surgery: right radial artery pseudoaneurysm resection with vein patch repair of the radial artery Blood loss: 25ml Anesthesia: general RICHARD CHAVEZ MD Dec 01, 2017 10:04
[2017-12-01] MEDS ORDERED: fentaNYL PF VIAL 100 MCG/2 ML VIAL ONE (10:06)
[2017-12-01] MEDS: fentaNYL PF VIAL 100 MCG/2 ML VIAL IV PRN ×2 (10:10→10:23)
[2017-12-01] MEDS ORDERED: HYDROcodone/APAP 5/325MG 1 TAB TABLET PO PRN (10:15)
--- NOTE | 2017-12-01 10:57 | PDOC ---
PROGRESS NOTES History of Present Illness History of Present Illness ASSESSMENT PLAN: Pseudoaneurysm after cardiac catheterization. Vascular Surgery.for repair today monitor labs, cardiac monitoring, PT, OT, wound care. Vitals Vitals Vital Signs Date Time Temp Pulse Resp B/P (MAP) Pulse Ox O2 Delivery O2 Flow Rate FiO2 12/01/17 10:39 100 Nasal Cannula 3.0 12/01/17 10:23 18 12/01/17 10:11 78 143/75 12/01/17 09:56 98.4 98.4 Physical Exam Physical Exam HENT: Normocephalic, atraumatic, bilateral external ears normal, oropharynx moist Neck: Normal range of motion, no tenderness Cardiovascular:Heart rate regular rhythm Lungs & Thorax: Bilateral breath sounds clear to auscultation Abdomen: Bowel sounds normal, soft Skin: Warm, dry, no erythema, no rash Extremities: area of swelling over the right radial artery on the volar aspect of the wrist. ecchymosis. Distal cap refill < 2 seconds. Palpable radial/ ulnar pulses are present. Neurologic: Alert and oriented X 3 Psychologic: Affect normal General: Alert, Oriented X3, Cooperative Heart: Regular rate Lungs: Clear Abdomen: Normal bowel sounds, Soft Extremities: No cyanosis Skin: No significant lesion Labs LABS Laboratory Tests Test 11/30/17 17:18 12/01/17 04:30 White Blood Count 10.1 x10^3/uL (4.0-11.0) Red Blood Count 4.27 x10^6/uL (3.50-5.40) Hemoglobin 13.3 g/dL (12.0-15.5) Hematocrit 39.1 % (36.0-47.0) Mean Corpuscular Volume 91 fL (79-100) Mean Corpuscular Hemoglobin 31 pg (25-35) Mean Corpuscular Hemoglobin Concent 34 g/dL (31-37) Red Cell Distribution Width 15.7 % (11.5-14.5) Platelet Count 233 x10^3/uL (140-400) Neutrophils (%) (Auto) 76 % (31-73) Lymphocytes (%) (Auto) 14 % (24-48) Monocytes (%) (Auto) 9 % (0-9) Eosinophils (%) (Auto) 1 % (0-3) Basophils (%) (Auto) 0 % (0-3) Neutrophils # (Auto) 7.7 x10^3uL (1.8-7.7) Lymphocytes # (Auto) 1.4 x10^3/uL (1.0-4.8) Monocytes # (Auto) 0.9 x10^3/uL (0.0-1.1) Eosinophils # (Auto) 0.1 x10^3/uL (0.0-0.7) Basophils # (Auto) 0.0 x10^3/uL (0.0-0.2) Prothrombin Time 13.9 SEC (11.7-14.0) Prothromb Time International Ratio 1.1 (0.8-1.1) Activated Partial Thromboplast Time 32 SEC (24-38) Sodium Level 131 mmol/L (136-145) 134 mmol/L (136-145) Potassium Level 4.6 mmol/L (3.5-5.1) 3.9 mmol/L (3.5-5.1) Chloride Level 96 mmol/L (98-107) 102 mmol/L (98-107) Carbon Dioxide Level 27 mmol/L (21-32) 24 mmol/L (21-32) Anion Gap 8 (6-14) 8 (6-14) Blood Urea Nitrogen 22 mg/dL (7-20) 19 mg/dL (7-20) Creatinine 1.3 mg/dL (0.6-1.0) 1.1 mg/dL (0.6-1.0) Estimated GFR (Cockcroft-Gault) 38.6 46.8 Glucose Level 98 mg/dL (70-99) 84 mg/dL (70-99) Calcium Level 9.7 mg/dL (8.5-10.1) 8.7 mg/dL (8.5-10.1) Total Bilirubin 0.8 mg/dL (0.2-1.0) Direct Bilirubin 0.2 mg/dL (0.0-0.2) Aspartate Amino Transf (AST/SGOT) 33 U/L (15-37) Alanine Aminotransferase (ALT/SGPT) 27 U/L (14-59) Alkaline Phosphatase 85 U/L (46-116) Total Protein 7.9 g/dL (6.4-8.2) Albumin 4.0 g/dL (3.4-5.0) Assessment and Plan Assessmemt and Plan Problems Medical Problems: (1) Pseudoaneurysm Status: Acute Pre-op: right radial artery pseudoaneurysm Post-op: same Surgeon: Dr. Chavez Surgery: right radial artery pseudoaneurysm resection with vein patch repair of the radial artery Blood loss: 25ml Anesthesia: general RICHARD CHAVEZ MD Dec 01, 2017 10:04 Comment Review of Relevant I have reviewed the following items mikie (where applicable) has been applied. Labs Laboratory Tests Test 11/30/17 17:18 12/01/17 04:30 White Blood Count 10.1 x10^3/uL (4.0-11.0) Red Blood Count 4.27 x10^6/uL (3.50-5.40) Hemoglobin 13.3 g/dL (12.0-15.5) Hematocrit 39.1 % (36.0-47.0) Mean Corpuscular Volume 91 fL (79-100) Mean Corpuscular Hemoglobin 31 pg (25-35) Mean Corpuscular Hemoglobin Concent 34 g/dL (31-37) Red Cell Distribution Width 15.7 % (11.5-14.5) Platelet Count 233 x10^3/uL (140-400) Neutrophils (%) (Auto) 76 % (31-73) Lymphocytes (%) (Auto) 14 % (24-48) Monocytes (%) (Auto) 9 % (0-9) Eosinophils (%) (Auto) 1 % (0-3) Basophils (%) (Auto) 0 % (0-3) Neutrophils # (Auto) 7.7 x10^3uL (1.8-7.7) Lymphocytes # (Auto) 1.4 x10^3/uL (1.0-4.8) Monocytes # (Auto) 0.9 x10^3/uL (0.0-1.1) Eosinophils # (Auto) 0.1 x10^3/uL (0.0-0.7) Basophils # (Auto) 0.0 x10^3/uL (0.0-0.2) Prothrombin Time 13.9 SEC (11.7-14.0) Prothromb Time International Ratio 1.1 (0.8-1.1) Activated Partial Thromboplast Time 32 SEC (24-38) Sodium Level 131 mmol/L (136-145) 134 mmol/L (136-145) Potassium Level 4.6 mmol/L (3.5-5.1) 3.9 mmol/L (3.5-5.1) Chloride Level 96 mmol/L (98-107) 102 mmol/L (98-107) Carbon Dioxide Level 27 mmol/L (21-32) 24 mmol/L (21-32) Anion Gap 8 (6-14) 8 (6-14) Blood Urea Nitrogen 22 mg/dL (7-20) 19 mg/dL (7-20) Creatinine 1.3 mg/dL (0.6-1.0) 1.1 mg/dL (0.6-1.0) Estimated GFR (Cockcroft-Gault) 38.6 46.8 Glucose Level 98 mg/dL (70-99) 84 mg/dL (70-99) Calcium Level 9.7 mg/dL (8.5-10.1) 8.7 mg/dL (8.5-10.1) Total Bilirubin 0.8 mg/dL (0.2-1.0) Direct Bilirubin 0.2 mg/dL (0.0-0.2) Aspartate Amino Transf (AST/SGOT) 33 U/L (15-37) Alanine Aminotransferase (ALT/SGPT) 27 U/L (14-59) Alkaline Phosphatase 85 U/L (46-116) Total Protein 7.9 g/dL (6.4-8.2) Albumin 4.0 g/dL (3.4-5.0) Laboratory Tests Test 11/30/17 17:18 12/01/17 04:30 White Blood Count 10.1 x10^3/uL (4.0-11.0) Red Blood Count 4.27 x10^6/uL (3.50-5.40) Hemoglobin 13.3 g/dL (12.0-15.5) Hematocrit 39.1 % (36.0-47.0) Mean Corpuscular Volume 91 fL (79-100) Mean Corpuscular Hemoglobin 31 pg (25-35) Mean Corpuscular Hemoglobin Concent 34 g/dL (31-37) Red Cell Distribution Width 15.7 % (11.5-14.5) Platelet Count 233 x10^3/uL (140-400) Neutrophils (%) (Auto) 76 % (31-73) Lymphocytes (%) (Auto) 14 % (24-48) Monocytes (%) (Auto) 9 % (0-9) Eosinophils (%) (Auto) 1 % (0-3) Basophils (%) (Auto) 0 % (0-3) Neutrophils # (Auto) 7.7 x10^3uL (1.8-7.7) Lymphocytes # (Auto) 1.4 x10^3/uL (1.0-4.8) Monocytes # (Auto) 0.9 x10^3/uL (0.0-1.1) Eosinophils # (Auto) 0.1 x10^3/uL (0.0-0.7) Basophils # (Auto) 0.0 x10^3/uL (0.0-0.2) Prothrombin Time 13.9 SEC (11.7-14.0) Prothromb Time International Ratio 1.1 (0.8-1.1) Activated Partial Thromboplast Time 32 SEC (24-38) Sodium Level 131 mmol/L (136-145) 134 mmol/L (136-145) Potassium Level 4.6 mmol/L (3.5-5.1) 3.9 mmol/L (3.5-5.1) Chloride Level 96 mmol/L (98-107) 102 mmol/L (98-107) Carbon Dioxide Level 27 mmol/L (21-32) 24 mmol/L (21-32) Anion Gap 8 (6-14) 8 (6-14) Blood Urea Nitrogen 22 mg/dL (7-20) 19 mg/dL (7-20) Creatinine 1.3 mg/dL (0.6-1.0) 1.1 mg/dL (0.6-1.0) Estimated GFR (Cockcroft-Gault) 38.6 46.8 Glucose Level 98 mg/dL (70-99) 84 mg/dL (70-99) Calcium Level 9.7 mg/dL (8.5-10.1) 8.7 mg/dL (8.5-10.1) Total Bilirubin 0.8 mg/dL (0.2-1.0) Direct Bilirubin 0.2 mg/dL (0.0-0.2) Aspartate Amino Transf (AST/SGOT) 33 U/L (15-37) Alanine Aminotransferase (ALT/SGPT) 27 U/L (14-59) Alkaline Phosphatase 85 U/L (46-116) Total Protein 7.9 g/dL (6.4-8.2) Albumin 4.0 g/dL (3.4-5.0) Medications Current Medications Ondansetron HCl (Zofran) 4 mg PRN Q8HRS PRN IV NAUSEA/VOMITING; Start 11/30/17 at 16:15; Stop 12/01/17 at 16:14 Morphine Sulfate (Morphine Sulfate) 2 mg PRN Q2HR PRN IV PAIN; Start 11/30/17 at 16:15; Stop 12/01/17 at 16:14 Sodium Chloride 1,000 ml @ 70 mls/hr [id number] IV Last administered on 11/30/17at 23:37; Start 11/30/17 at 23:59; Stop 12/01/17 at 23:58 Acetaminophen (Tylenol) 650 mg PRN Q4HRS PRN PO FEVER; Start 11/30/17 at 16:15; Stop 12/01/17 at 16:14 Clonidine HCl (Catapres) 0.2 mg Q8HRS PO Last administered on 11/30/17at 21:17; Start 11/30/17 at 22:00 Lisinopril (Prinivil) 20 mg DAILY PO Last administered on 11/30/17at 17:15; Start 11/30/17 at 17:00 Alprazolam (Xanax) 1 mg 1X ONCE PO ; Start 11/30/17 at 16:30; Stop 11/30/17 at 16 :32; Status DC Alprazolam (Xanax) 0.5 mg PRN Q8HRS PRN PO ANXIETY / AGITATION Last administered on 11/30/17at 21:17; Start 11/30/17 at 16:30 Alprazolam (Xanax) 1 mg 1X ONCE PO ; Start 11/30/17 at 17:15; Stop 11/30/17 at 17 :15; Status DC Dexamethasone Sodium Phosphate (Decadron) 20 mg STK-MED ONCE .ROUTE ; Start 12/01 at 07:00; Stop 12/01/17 at 07:01; Status DC Ondansetron HCl (Zofran) 4 mg STK-MED ONCE .ROUTE ; Start 12/01/17 at 07:00; Stop 12/01/17 at 07:01; Status DC Propofol 20 ml @ As Directed STK-MED ONCE IV ; Start 12/01/17 at 07:00; Stop 12/01 at 07:01; Status DC Lidocaine HCl (Lidocaine Pf 2% Vial) 5 ml STK-MED ONCE .ROUTE ; Start 12/01/17 at 07:00; Stop 12/01/17 at 07:01; Status DC Cefazolin Sodium 1 gm/Sodium Chloride 500 ml @ 500 mls/hr 1X ONCE IRR Last administered on 12/01/17at 09:03; Start 12/01/17 at 08:00; Stop 12/01/17 at 08:59; Status DC Heparin Sodium (Porcine) 5000 unit/Sodium Chloride 505 ml @ 505 mls/hr 1X ONCE IRR Last administered on 12/01/17at 09:03; Start 12/01/17 at 08:00; Stop 12/01 at 08:59; Status DC Ondansetron HCl (Zofran) 4 mg PRN Q6HRS PRN IV NAUSEA/VOMITING; Start 12/01/17 at 08:00; Stop 12/02/17 at 07:59 Fentanyl Citrate (Fentanyl 2ml Vial) 25 mcg PRN Q5MIN PRN IV MILD PAIN Last administered on 12/01/17at 10:23; Start 12/01/17 at 08:00; Stop 12/02/17 at 07:59 Fentanyl Citrate (Fentanyl 2ml Vial) 50 mcg PRN Q5MIN PRN IV MODERATE TO SEVERE PAIN Last administered on 12/01/17at 10:39; Start 12/01/17 at 08:00; Stop at 07:59 Morphine Sulfate (Morphine Sulfate) 1 mg PRN Q10MIN PRN IV SEVERE PAIN; Start 12/01/17 at 08:00; Stop 12/02/17 at 07:59 Ringer's Solution 1,000 ml @ 30 mls/hr Q24H IV ; Start 12/01/17 at 07:47; Stop 12/01/17 at 19:46 Lidocaine HCl (Xylocaine-Mpf 1% 2ml Vial) 2 ml 1X PRN PRN ID IV START; Start at 08:00; Stop 12/02/17 at 07:59 Hydromorphone HCl (Dilaudid) 0.5 mg PRN Q10MIN PRN IV SEV PAIN, Second choice; Start 12/01/17 at 08:00; Stop 12/02/17 at 07:59 Prochlorperazine Edisylate (Compazine) 5 mg PACU PRN PRN IV NAUSEA, MRX1; Start 12/01/17 at 08:00; Stop 12/02/17 at 07:59 Cellulose (Surgicel Fibrillar 1x2) 1 each STK-MED ONCE .ROUTE Last administered on 12/01/17at 08:44; Start 12/01/17 at 07:11; Stop 12/01/17 at 08:11; Status DC Lidocaine HCl (Xylocaine 1% Pf 30ml Vial) 30 ml STK-MED ONCE .ROUTE ; Start 12/01 at 07:11; Stop 12/01/17 at 08:12; Status DC Heparin Sodium (Porcine) (Heparin Sodium) 10,000 unit STK-MED ONCE .ROUTE ; Start 12/01/17 at 08:46; Stop 12/01/17 at 08:47; Status DC Cefazolin Sodium 50 ml @ 100 mls/hr 1X ONCE IV ; Start 12/01/17 at 09:00; Stop 12/01/17 at 09:29; Status DC Protamine Sulfate (Protamine) 50 mg STK-MED ONCE IV ; Start 12/01/17 at 09:36; Stop 12/01/17 at 09:37; Status DC Propofol 20 ml @ As Directed STK-MED ONCE IV ; Start 12/01/17 at 09:36; Stop 12/01 at 09:37; Status DC Dexamethasone Sodium Phosphate (Decadron) 20 mg STK-MED ONCE .ROUTE ; Start 12/01 at 09:36; Stop 12/01/17 at 09:37; Status DC Ondansetron HCl (Zofran) 4 mg STK-MED ONCE .ROUTE ; Start 12/01/17 at 09:37; Stop 12/01/17 at 09:38; Status DC Sevoflurane (Ultane) 60 ml STK-MED ONCE IH ; Start 12/01/17 at 09:37; Stop at 09:38; Status DC Phenylephrine HCl (PHENYLEPHRINE in 0.9% NACL PF) 1 mg STK-MED ONCE IV ; Start 12/01/17 at 09:37; Stop 12/01/17 at 09:38; Status DC Aspirin (Tatiana Aspirin) 325 mg DAILYWBKFT PO ; Start 12/02/17 at 08:00 Clopidogrel Bisulfate (Plavix) 75 mg DAILYWBKFT PO ; Start 12/02/17 at 08:00 Fentanyl Citrate (Fentanyl 2ml Vial) 100 mcg STK-MED ONCE .ROUTE ; Start at 10:06; Stop 12/01/17 at 10:07; Status DC Acetaminophen/ Hydrocodone Bitart (Lortab 5/325) 1 tab PRN Q4HRS PRN PO PAIN; Start 12/01/17 at 10:15 Cefazolin Sodium 1 gm/Dextrose 50 ml @ 100 mls/hr Q8HRS IV ; Start 12/01/17 at 14:00; Stop 12/02/17 at 13:59; Status UNV Cefazolin Sodium (Ancef) 1 gm Q8HRS IVP ; Start 12/01/17 at 14:00; Stop 12/02/17 at 13:59 Active Scripts Active Reported Clopidogrel (Clopidogrel Bisulfate) 75 Mg Tablet 1 Tab PO DAILY Aspirin 325 Mg Tablet 1 Tab PO DAILY Furosemide 20 Mg Tablet 1 Tab PO DAILY Biotin 1,000 Mcg Tab.chew 1,000 Mcg PO DAILY Coq10 (Ubidecarenone) 50 Mg Tab.chew 50 Mg PO Vitamin D3 (Cholecalciferol (Vitamin D3)) 1,000 Unit Tablet 0.5 Tab PO DAILY Jenise-D 12 Hour Tablet (Fexofenadine/Pseudoephedrine) 1 Each Tab.er.12h 1 Tab PO BID Atorvastatin Calcium 10 Mg Tablet 1 Tab PO DAILY Lisinopril 20 Mg Tablet 1 Tab PO BID Cardio Tea (Green Tea [place] Extract) 1 Each Capsule 1 Each PO DAILY Alprazolam 0.5 Mg Tablet 1 Tab PO TID Ferrous Gluconate 324 Mg Tablet 324 Mg PO DAILY Multivitamins (Multivitamin) 1 Each Tablet 1 Tab PO DAILY Jenise Allergy (Fexofenadine Hcl) 60 Mg Tablet 60 Mg PO PRN BID PRN Flonase Allergy Relief (Fluticasone Propionate) 9.9 Ml Mineral.susp 2 Sprays NS PRN DAILY PRN Nitrostat (Nitroglycerin) 0.4 Mg Tab.subl 0.4 Mg SL PRN Q5MIN PRN Amitriptyline Hcl 25 Mg Tablet 1 Tab PO QHS Benazepril Hcl 20 Mg Tablet 1 Tab PO DAILY Clonidine Hcl 0.1 Mg Tablet 0.1 Mg PO TID Toprol Xl (Metoprolol Succinate) 50 Mg Tab.er.24h 1 Tab PO DAILY Levothyroxine Sodium 50 Mcg Tablet 1.5 Tab PO DAILY Vitals/I & O Vital Sign - Last 24 Hours 11/30/17 11/30/17 11/30/17 11/30/17 12:32 13:49 14:19 14:49 Temp 97.6 97.6 Pulse 94 112 84 84 Resp 20 B/P (MAP) 169/86 (113) 184/110 (134) 162/89 (113) 168/91 (116) Pulse Ox 94 O2 Delivery Room Air Room Air Room Air Room Air 11/30/17 11/30/17 11/30/17 11/30/17 15:19 15:49 16:19 16:49 B/P (MAP) 176/94 (121) 176/99 (124) 192/95 (127) 173/103 (126) 11/30/17 11/30/17 11/30/17 11/30/17 17:15 17:19 18:46 19:30 Temp 98.6 98.6 Pulse 88 96 Resp 20 B/P (MAP) 173/103 177/98 (124) 151/105 (120) Pulse Ox 96 O2 Delivery Room Air Room Air 11/30/17 11/30/17 11/30/17 12/01/17 19:30 21:17 23:16 03:07 Temp 97.6 97.7 98.0 97.6 97.7 98.0 Pulse 103 103 91 88 Resp 18 18 18 B/P (MAP) 164/103 (123) 164/103 139/91 (107) 107/69 (82) Pulse Ox 90 90 94 O2 Delivery Room Air Room Air Room Air 12/01/17 12/01/17 12/01/17 12/01/17 07:00 07:55 09:56 10:10 Temp 98.1 98.4 98.1 98.4 Pulse 78 80 Resp 18 16 17 B/P (MAP) 140/93 (109) 131/74 Pulse Ox 94 97 97 O2 Delivery Room Air Room Air Simple Mask Room Air O2 Flow Rate 10 12/01/17 12/01/17 12/01/17 12/01/17 10:11 10:11 10:23 10:39 Pulse 78 Resp 18 18 B/P (MAP) 143/75 Pulse Ox 96 96 100 O2 Delivery Room Air Room Air Room Air Nasal Cannula O2 Flow Rate 3.0 DONALD COCHRAN MD Dec 01, 2017 10:57
--- NOTE | 2017-12-01 11:07 | OP ---
DATE OF SURGERY: 12/01/2017 SURGEON: Richard Chavez M.D. ANESTHESIA USED: General anesthesia. 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 OPERATION PERFORMED: 1. Right radial artery pseudoaneurysm resection with vein patch repair of the anterior wall of the radial artery. 2. Right proximal forearm cephalic vein harvest. BLOOD LOSS: 25 mL. ANESTHESIA USED: General anesthesia. INDICATIONS: The patient is an 87-year-old female who underwent a cardiac catheterization through her right radial artery 1 week ago. She has, over the past few days, developed swelling over the puncture site and bruising of her forearm. Duplex scan shows a 2.5-cm pseudoaneurysm off the radial artery with active blood flow within the pseudoaneurysm sac. I recommended surgical repair of her radial artery and excision of the pseudoaneurysm. She is asymptomatic with good circulation in the right hand. She does have intact motor function and just mild numbness in her fingers. Informed consent was obtained including the risks of bleeding, infection, difficulty healing her incisions, especially with the extensive bruising that she has, possible ischemia to the hand. DETAILS OF THE OPERATION: The patient was brought to the operating room, placed on the table in supine position. She received general anesthesia monitored throughout the case by the anesthesiologist. Her right hand and right arm up to the axilla were prepped and draped by normal sterile fashion in a circumferential manner. I did ultrasound prior to starting the case and there was a good size cephalic vein in her proximal forearm that was out of the area of bruising and could be used for vein patch or bypass if needed and this was marked. She had an extensive bruising of the forearm. I made a longitudinal incision just proximal to the large palpable pseudoaneurysm dissected down through the subcutaneous tissue. There was bruising throughout the tissue and old blood. I dissected down through the fascia to the radial artery. The radial artery had a good palpable pulse within it. We placed a vessel loop around it for proximal control of the artery. We then incised into the pseudoaneurysm sac and there was pulsatile bleeding. I held pressure. We heparinized with 4000 units of heparin and after 3 minutes, we clamped proximal and radial artery for better blood control. We dissected out the distal radial artery past the area of injury and this was clamped with a spring bulldog. There was also a large side branch, which was clamped with another vascular clamp. This controlled all the bleeding. There is a sizable pseudoaneurysm sac, which was excised. The anterior wall of the radial artery had the hole from the access procedure causing the pseudoaneurysm. I opened this longitudinally with the Ch scissors to open the anterior wall of the vessel. I did not feel primary suture repair would be adequate since there was quite a bit of inflammation of the tissues. The artery was opened proximally and distally. It had a wide open lumen and good healthy vessel, otherwise. There was pulsatile inflow through the proximal radial artery and good backbleeding. I made a second incision in the proximal forearm over the cephalic vein. I dissected down through subcutaneous tissue with electrocautery down to the cephalic vein and it was dissected out proximally and distally. I ligated with silk sutures, clips and removed the segment of cephalic vein for a vein patch. The cephalic vein was opened longitudinally and it was cut to size. There was no valve visualized and I used the patch on the anterior wall for the repair. A 7-0 Prolene suture was used and I used it on the proximal and distal end of the vein patch and showed it to the anterior wall of the open radial artery with running suture technique. Prior to finishing, I backbled the vessels. We then finished the anastomosis and restored blood flow to the hand. There was good dopplerable signal in the distal radial artery and at the palmar arch. There was also good flow through the ulnar artery. An area of the anastomosis did have to be reinforced with 7-0 Prolene suture because of some bleeding. We irrigated the open wound with copious amounts of antibiotic solution. There was a lot of oozing of blood throughout the wound bed. She is on aspirin and Plavix; therefore, I reversed the heparin with 30 mg of protamine in total. We gained good hemostasis with clips and electrocautery. Fibrillar was left over the anastomosis and then, we irrigated the more proximal incision with antibiotic solution. I closed the subcutaneous tissue with running 3-0 Vicryl suture and closed the skin with running 4-0 Vicryl subcuticular suture. The radial artery incision was again irrigated with copious amounts of antibiotic solution. We ensured that the pseudoaneurysm cavity and hematoma was completely removed. After we had good hemostasis, fibrillar was left over the artery. I closed the subcutaneous tissue layer with running 3-0 Vicryl suture and closed the skin with running 4-0 Vicryl subcuticular suture. Dermabond was placed on both incisions along with a light compression wrap. At the end of the case, she had dopplerable flow in the distal radial artery and ulnar artery and in the hand. RICHARD CHAVEZ MD DR: VALDEZ/tony JOB#: [id number] / [id number]
--- NOTE | 2017-12-01 12:23 | CONS ---
DATE OF CONSULTATION: 12/01/2017 CHIEF COMPLAINT: Right wrist pseudoaneurysm. HISTORY OF PRESENT ILLNESS: The patient is an 87-year-old female who approximately 1 week ago underwent a cardiac catheterization through her right radial artery with coronary stenting. She states that just a few days ago, her wrist started swelling over the puncture site and her forearm became very bruised. She presents to the Emergency Department and ultrasound shows a 2.5-cm pseudoaneurysm of the right radial artery with no external bleeding. She reports no pain in her hand or fingers. She reports mild numbness in her fingers and has good normal strength. She reports no chest pain. Currently, she has no shortness of breath at rest. She does get shortness of breath with activity, which is a chronic problem. She is on aspirin and Plavix with her fresh coronary stents. REVIEW OF SYSTEMS: A 10-point review of systems was performed, which was otherwise negative besides what is mentioned in the history of present illness. PAST MEDICAL HISTORY: Includes: 1. Coronary artery disease. 2. Recent coronary artery stenting 1 week ago. 3. Hypertension. 4. Hyperlipidemia. 5. Hypothyroidism. 6. Myocardial infarction 28 years ago. 7. Colitis. PAST SURGICAL HISTORY: Includes cholecystectomy and recent coronary angiogram with stenting. ALLERGIES: INCLUDE IODINE. FAMILY HISTORY: Includes coronary artery disease. SOCIAL HISTORY: The patient does not drink alcohol and does not smoke. ALLERGIES: INCLUDE IODINE. MEDICATIONS: Please see her full MAR. To note, she is on aspirin and Plavix. PHYSICAL EXAMINATION: GENERAL: The patient is awake and alert. Currently, she is in no apparent distress. NECK: Supple. HEART: Has regular rate and rhythm. LUNGS: Have bilateral breath sounds to auscultation. ABDOMEN: Soft, nondistended and nontender. EXTREMITIES: Her right arm has extensive bruising of the wrist extending into the hand and up the forearm. There is a localized area of mass over her radial artery at the distal wrist at the puncture site, which is the pseudoaneurysm. There is no breakdown of her skin. Her fingers are warm and pink with good capillary refill and she has intact strong motor function, which is normal and intact sensation. She states that this is slightly diminished from her baseline. There is no swelling of the arm itself with edema. Her left upper extremity is warm without edema. Her bilateral lower extremities are warm without edema. NEUROLOGIC: She is awake and alert, oriented x 3, moving all 4 extremities with no gross neurologic deficits. IMPRESSION: Right radial artery pseudoaneurysm, which is approximately 2.5 cm in diameter with surrounding bruising secondary to a recent cardiac catheterization. PLAN: She has a sizable right radial artery pseudoaneurysm, which is 2.5 cm. This is also associated with extensive bruising of her forearm and hand. This is not causing arterial compromise her hand. She has good circulation to her hand. I do recommend surgical repair of the radial artery and excision of the pseudoaneurysm surgically. She will undergo surgery today. We will continue her aspirin and Plavix with her recent cardiac catheterization and stenting. Informed consent was obtained from the patient. RICHARD AMES MD DR: VALDEZ/tony JOB#: [id number] / [id number]
[2017-12-01] MEDS: ALPRAZolam 0.5 MG TABLET PO PRN ×2 (12:35→23:06)
[2017-12-01] MEDS: LISINOPRIL 20 MG TABLET PO SCH (12:36)
[2017-12-01] MEDS: IV NORMAL SALINE 1000ML BAG 1,000 ML IV SCH (12:38)
[2017-12-01] MEDS ORDERED: ceFAZolin SODIUM 1 GM in IV DEXTROSE 5% 50 ML IV SCH (14:00)
--- NOTE | 2017-12-01 15:10 | PDOC2 ---
CONSULT Date of Consult Date of Consult DATE: 12/01/17 TIME: 15:02 Reason for Consult Reason for Consult: Coronary artery disease with recent catheterization and right radial artery pseudoaneurysm Referring Physician Referring Physician: Dr. Kate Identification/Chief Complaint Chief Complaint Right wrist pain Source Source: Chart review History of Present Illness Reason for Visit: The patient is a pleasant 87-year-old female who underwent a heart catheterization via right radial artery access on 11/28/17 and received a drug- eluting stent to the right coronary artery. Ejection fraction was normal. She was started on dual antiplatelet medications and monitored overnight in the hospital. The following day the patient was feeling well. Her right wrist appeared normal with good distal pulses and she was discharged. The patient then was seen in the emergency room last evening due to episodes of increasing right wrist pain and swelling. Workup has shown a right radial artery pseudoaneurysm. Vascular surgery has seen the patient in the present time she is undergoing a pseudoaneurysm repair in the operating room. The patient denied any associated chest pain, shortness of breath, dizziness or lightheadedness. She has been continued on her dual antiplatelet medications. Past Medical History Cardiovascular: AFIB, CAD, HTN, SD, Hyperlipidemia GI: No pertinent hx, Other (colitis) Hepatobiliary: No pertinent hx Musculoskeletal: Osteoarthritis, Muscle atrophy, Weakness, Stiffness Endocrine: Hypothyroidism Past Surgical History Past Surgical History: Colectomy, Other (coronary stents), No pertinent history Family History Family History: No Significant Social History No ALCOHOL: none Drugs: None Current Problem List Problem List Problems Medical Problems: (1) Pseudoaneurysm Status: Acute Current Medications Current Medications Current Medications Ondansetron HCl (Zofran) 4 mg PRN Q8HRS PRN IV NAUSEA/VOMITING Last administered on 12/01/17at 12:39; Start 11/30/17 at 16:15; Stop 12/01/17 at 16:14 Morphine Sulfate (Morphine Sulfate) 2 mg PRN Q2HR PRN IV PAIN; Start 11/30/17 at 16:15; Stop 12/01/17 at 16:14 Sodium Chloride 1,000 ml @ 70 mls/hr [id number] IV Last administered on 12/01/17at 12:38; Start 11/30/17 at 23:59; Stop 12/01/17 at 23:58 Acetaminophen (Tylenol) 650 mg PRN Q4HRS PRN PO FEVER Last administered on at 12:39; Start 11/30/17 at 16:15; Stop 12/01/17 at 16:14 Clonidine HCl (Catapres) 0.2 mg Q8HRS PO Last administered on 11/30/17at 21:17; Start 11/30/17 at 22:00 Lisinopril (Prinivil) 20 mg DAILY PO Last administered on 12/01/17at 12:36; Start 11/30/17 at 17:00 Alprazolam (Xanax) 1 mg 1X ONCE PO ; Start 11/30/17 at 16:30; Stop 11/30/17 at 16 :32; Status DC Alprazolam (Xanax) 0.5 mg PRN Q8HRS PRN PO ANXIETY / AGITATION Last administered on 12/01/17at 12:35; Start 11/30/17 at 16:30 Alprazolam (Xanax) 1 mg 1X ONCE PO ; Start 11/30/17 at 17:15; Stop 11/30/17 at 17 :15; Status DC Dexamethasone Sodium Phosphate (Decadron) 20 mg STK-MED ONCE .ROUTE ; Start 12/01 at 07:00; Stop 12/01/17 at 07:01; Status DC Ondansetron HCl (Zofran) 4 mg STK-MED ONCE .ROUTE ; Start 12/01/17 at 07:00; Stop 12/01/17 at 07:01; Status DC Propofol 20 ml @ As Directed STK-MED ONCE IV ; Start 12/01/17 at 07:00; Stop 12/01 at 07:01; Status DC Lidocaine HCl (Lidocaine Pf 2% Vial) 5 ml STK-MED ONCE .ROUTE ; Start 12/01/17 at 07:00; Stop 12/01/17 at 07:01; Status DC Cefazolin Sodium 1 gm/Sodium Chloride 500 ml @ 500 mls/hr 1X ONCE IRR Last administered on 12/01/17at 09:03; Start 12/01/17 at 08:00; Stop 12/01/17 at 08:59; Status DC Heparin Sodium (Porcine) 5000 unit/Sodium Chloride 505 ml @ 505 mls/hr 1X ONCE IRR Last administered on 12/01/17at 09:03; Start 12/01/17 at 08:00; Stop 12/01 at 08:59; Status DC Ondansetron HCl (Zofran) 4 mg PRN Q6HRS PRN IV NAUSEA/VOMITING; Start 12/01/17 at 08:00; Stop 12/02/17 at 07:59 Fentanyl Citrate (Fentanyl 2ml Vial) 25 mcg PRN Q5MIN PRN IV MILD PAIN Last administered on 12/01/17at 10:23; Start 12/01/17 at 08:00; Stop 12/02/17 at 07:59 Fentanyl Citrate (Fentanyl 2ml Vial) 50 mcg PRN Q5MIN PRN IV MODERATE TO SEVERE PAIN Last administered on 12/01/17at 10:39; Start 12/01/17 at 08:00; Stop at 07:59 Morphine Sulfate (Morphine Sulfate) 1 mg PRN Q10MIN PRN IV SEVERE PAIN; Start 12/01/17 at 08:00; Stop 12/02/17 at 07:59 Ringer's Solution 1,000 ml @ 30 mls/hr Q24H IV ; Start 12/01/17 at 07:47; Stop 12/01/17 at 19:46 Lidocaine HCl (Xylocaine-Mpf 1% 2ml Vial) 2 ml 1X PRN PRN ID IV START; Start at 08:00; Stop 12/02/17 at 07:59 Hydromorphone HCl (Dilaudid) 0.5 mg PRN Q10MIN PRN IV SEV PAIN, Second choice; Start 12/01/17 at 08:00; Stop 12/02/17 at 07:59 Prochlorperazine Edisylate (Compazine) 5 mg PACU PRN PRN IV NAUSEA, MRX1; Start 12/01/17 at 08:00; Stop 12/02/17 at 07:59 Cellulose (Surgicel Fibrillar 1x2) 1 each STK-MED ONCE .ROUTE Last administered on 12/01/17at 08:44; Start 12/01/17 at 07:11; Stop 12/01/17 at 08:11; Status DC Lidocaine HCl (Xylocaine 1% Pf 30ml Vial) 30 ml STK-MED ONCE .ROUTE ; Start 12/01 at 07:11; Stop 12/01/17 at 08:12; Status DC Heparin Sodium (Porcine) (Heparin Sodium) 10,000 unit STK-MED ONCE .ROUTE ; Start 12/01/17 at 08:46; Stop 12/01/17 at 08:47; Status DC Cefazolin Sodium 50 ml @ 100 mls/hr 1X ONCE IV Last administered on 12/01/17at 09:42; Start 12/01/17 at 09:00; Stop 12/01/17 at 09:29; Status DC Protamine Sulfate (Protamine) 50 mg STK-MED ONCE IV ; Start 12/01/17 at 09:36; Stop 12/01/17 at 09:37; Status DC Propofol 20 ml @ As Directed STK-MED ONCE IV ; Start 12/01/17 at 09:36; Stop 12/01 at 09:37; Status DC Dexamethasone Sodium Phosphate (Decadron) 20 mg STK-MED ONCE .ROUTE ; Start 12/01 at 09:36; Stop 12/01/17 at 09:37; Status DC Ondansetron HCl (Zofran) 4 mg STK-MED ONCE .ROUTE ; Start 12/01/17 at 09:37; Stop 12/01/17 at 09:38; Status DC Sevoflurane (Ultane) 60 ml STK-MED ONCE IH ; Start 12/01/17 at 09:37; Stop at 09:38; Status DC Phenylephrine HCl (PHENYLEPHRINE in 0.9% NACL PF) 1 mg STK-MED ONCE IV ; Start 12/01/17 at 09:37; Stop 12/01/17 at 09:38; Status DC Aspirin (Tatiana Aspirin) 325 mg DAILYWBKFT PO ; Start 12/02/17 at 08:00 Clopidogrel Bisulfate (Plavix) 75 mg DAILYWBKFT PO ; Start 12/02/17 at 08:00 Fentanyl Citrate (Fentanyl 2ml Vial) 100 mcg STK-MED ONCE .ROUTE ; Start at 10:06; Stop 12/01/17 at 10:07; Status DC Acetaminophen/ Hydrocodone Bitart (Lortab 5/325) 1 tab PRN Q4HRS PRN PO PAIN; Start 12/01/17 at 10:15 Cefazolin Sodium 1 gm/Dextrose 50 ml @ 100 mls/hr Q8HRS IV ; Start 12/01/17 at 14:00; Stop 12/02/17 at 13:59; Status UNV Cefazolin Sodium (Ancef) 1 gm Q8HRS IVP ; Start 12/01/17 at 14:00; Stop 12/02/17 at 13:59 Active Scripts Active Reported Clopidogrel (Clopidogrel Bisulfate) 75 Mg Tablet 1 Tab PO DAILY Aspirin 325 Mg Tablet 1 Tab PO DAILY Furosemide 20 Mg Tablet 1 Tab PO DAILY Biotin 1,000 Mcg Tab.chew 1,000 Mcg PO DAILY Coq10 (Ubidecarenone) 50 Mg Tab.chew 50 Mg PO Vitamin D3 (Cholecalciferol (Vitamin D3)) 1,000 Unit Tablet 0.5 Tab PO DAILY Jenise-D 12 Hour Tablet (Fexofenadine/Pseudoephedrine) 1 Each Tab.er.12h 1 Tab PO BID Atorvastatin Calcium 10 Mg Tablet 1 Tab PO DAILY Lisinopril 20 Mg Tablet 1 Tab PO BID Cardio Tea (Green Tea Sultana Extract) 1 Each Capsule 1 Each PO DAILY Alprazolam 0.5 Mg Tablet 1 Tab PO TID Ferrous Gluconate 324 Mg Tablet 324 Mg PO DAILY Multivitamins (Multivitamin) 1 Each Tablet 1 Tab PO DAILY Jenise Allergy (Fexofenadine Hcl) 60 Mg Tablet 60 Mg PO PRN BID PRN Flonase Allergy Relief (Fluticasone Propionate) 9.9 Ml [place].susp 2 Sprays NS PRN DAILY PRN Nitrostat (Nitroglycerin) 0.4 Mg Tab.subl 0.4 Mg SL PRN Q5MIN PRN Amitriptyline Hcl 25 Mg Tablet 1 Tab PO QHS Benazepril Hcl 20 Mg Tablet 1 Tab PO DAILY Clonidine Hcl 0.1 Mg Tablet 0.1 Mg PO TID Toprol Xl (Metoprolol Succinate) 50 Mg Tab.er.24h 1 Tab PO DAILY Levothyroxine Sodium 50 Mcg Tablet 1.5 Tab PO DAILY Allergies Allergies: Coded Allergies: iodine (Verified Allergy, Intermediate, 08/26/16) ROS Neurological: Yes Other (right wrist pain and swelling) Vitals VITALS Vital Signs Date Time Temp Pulse Resp B/P (MAP) Pulse Ox O2 Delivery O2 Flow Rate FiO2 12/01/17 12:36 80 139/82 12/01/17 11:15 Room Air 2.0 12/01/17 11:00 97.4 18 98 97.4 Labs Labs Laboratory Tests Test 11/30/17 17:18 12/01/17 04:30 White Blood Count 10.1 x10^3/uL (4.0-11.0) Red Blood Count 4.27 x10^6/uL (3.50-5.40) Hemoglobin 13.3 g/dL (12.0-15.5) Hematocrit 39.1 % (36.0-47.0) Mean Corpuscular Volume 91 fL (79-100) Mean Corpuscular Hemoglobin 31 pg (25-35) Mean Corpuscular Hemoglobin Concent 34 g/dL (31-37) Red Cell Distribution Width 15.7 % (11.5-14.5) Platelet Count 233 x10^3/uL (140-400) Neutrophils (%) (Auto) 76 % (31-73) Lymphocytes (%) (Auto) 14 % (24-48) Monocytes (%) (Auto) 9 % (0-9) Eosinophils (%) (Auto) 1 % (0-3) Basophils (%) (Auto) 0 % (0-3) Neutrophils # (Auto) 7.7 x10^3uL (1.8-7.7) Lymphocytes # (Auto) 1.4 x10^3/uL (1.0-4.8) Monocytes # (Auto) 0.9 x10^3/uL (0.0-1.1) Eosinophils # (Auto) 0.1 x10^3/uL (0.0-0.7) Basophils # (Auto) 0.0 x10^3/uL (0.0-0.2) Prothrombin Time 13.9 SEC (11.7-14.0) Prothromb Time International Ratio 1.1 (0.8-1.1) Activated Partial Thromboplast Time 32 SEC (24-38) Sodium Level 131 mmol/L (136-145) 134 mmol/L (136-145) Potassium Level 4.6 mmol/L (3.5-5.1) 3.9 mmol/L (3.5-5.1) Chloride Level 96 mmol/L (98-107) 102 mmol/L (98-107) Carbon Dioxide Level 27 mmol/L (21-32) 24 mmol/L (21-32) Anion Gap 8 (6-14) 8 (6-14) Blood Urea Nitrogen 22 mg/dL (7-20) 19 mg/dL (7-20) Creatinine 1.3 mg/dL (0.6-1.0) 1.1 mg/dL (0.6-1.0) Estimated GFR (Cockcroft-Gault) 38.6 46.8 Glucose Level 98 mg/dL (70-99) 84 mg/dL (70-99) Calcium Level 9.7 mg/dL (8.5-10.1) 8.7 mg/dL (8.5-10.1) Total Bilirubin 0.8 mg/dL (0.2-1.0) Direct Bilirubin 0.2 mg/dL (0.0-0.2) Aspartate Amino Transf (AST/SGOT) 33 U/L (15-37) Alanine Aminotransferase (ALT/SGPT) 27 U/L (14-59) Alkaline Phosphatase 85 U/L (46-116) Total Protein 7.9 g/dL (6.4-8.2) Albumin 4.0 g/dL (3.4-5.0) Laboratory Tests Test 11/30/17 17:18 12/01/17 04:30 White Blood Count 10.1 x10^3/uL (4.0-11.0) Red Blood Count 4.27 x10^6/uL (3.50-5.40) Hemoglobin 13.3 g/dL (12.0-15.5) Hematocrit 39.1 % (36.0-47.0) Mean Corpuscular Volume 91 fL (79-100) Mean Corpuscular Hemoglobin 31 pg (25-35) Mean Corpuscular Hemoglobin Concent 34 g/dL (31-37) Red Cell Distribution Width 15.7 % (11.5-14.5) Platelet Count 233 x10^3/uL (140-400) Neutrophils (%) (Auto) 76 % (31-73) Lymphocytes (%) (Auto) 14 % (24-48) Monocytes (%) (Auto) 9 % (0-9) Eosinophils (%) (Auto) 1 % (0-3) Basophils (%) (Auto) 0 % (0-3) Neutrophils # (Auto) 7.7 x10^3uL (1.8-7.7) Lymphocytes # (Auto) 1.4 x10^3/uL (1.0-4.8) Monocytes # (Auto) 0.9 x10^3/uL (0.0-1.1) Eosinophils # (Auto) 0.1 x10^3/uL (0.0-0.7) Basophils # (Auto) 0.0 x10^3/uL (0.0-0.2) Prothrombin Time 13.9 SEC (11.7-14.0) Prothromb Time International Ratio 1.1 (0.8-1.1) Activated Partial Thromboplast Time 32 SEC (24-38) Sodium Level 131 mmol/L (136-145) 134 mmol/L (136-145) Potassium Level 4.6 mmol/L (3.5-5.1) 3.9 mmol/L (3.5-5.1) Chloride Level 96 mmol/L (98-107) 102 mmol/L (98-107) Carbon Dioxide Level 27 mmol/L (21-32) 24 mmol/L (21-32) Anion Gap 8 (6-14) 8 (6-14) Blood Urea Nitrogen 22 mg/dL (7-20) 19 mg/dL (7-20) Creatinine 1.3 mg/dL (0.6-1.0) 1.1 mg/dL (0.6-1.0) Estimated GFR (Cockcroft-Gault) 38.6 46.8 Glucose Level 98 mg/dL (70-99) 84 mg/dL (70-99) Calcium Level 9.7 mg/dL (8.5-10.1) 8.7 mg/dL (8.5-10.1) Total Bilirubin 0.8 mg/dL (0.2-1.0) Direct Bilirubin 0.2 mg/dL (0.0-0.2) Aspartate Amino Transf (AST/SGOT) 33 U/L (15-37) Alanine Aminotransferase (ALT/SGPT) 27 U/L (14-59) Alkaline Phosphatase 85 U/L (46-116) Total Protein 7.9 g/dL (6.4-8.2) Albumin 4.0 g/dL (3.4-5.0) Assessment/Plan Assessment/Plan 1. Right radial artery pseudoaneurysm. Patient is status post catheter on . She has been evaluated by the vascular surgery service is undergoing a repair. 2. Coronary artery disease. Status post drug-eluting stent to the right coronary artery 3 days ago. No chest pain. Has been continued on dual antiplatelet medications and her baseline meds. 3. Hypertension. Monitor blood pressure and adjust as needed. 4. Hyperlipidemia. We'll continue statin medications. 5. Hypothyroidism. We'll continue baseline medications. Thank you for allowing us to participate in the care of your patient. MAYO LOZANO MD Dec 01, 2017 15:10
[2017-12-01] MEDS: ceFAZolin SODIUM IV Push 1 GM VIAL. IVP SCH ×2 (15:17→22:13)
[2017-12-01] MEDS: cloNIDine HCL 0.2 MG TABLET PO SCH ×3 (15:18→22:26)
[2017-12-02 03:00] VITALS: BP 87/51
[2017-12-02] MEDS: cloNIDine HCL 0.2 MG TABLET PO SCH ×2 (05:47→13:49)
[2017-12-02] MEDS: ceFAZolin SODIUM IV Push 1 GM VIAL. IVP SCH (05:56)
[2017-12-02 06:49] LABS: ALBUMIN 2.6 g/dL (3.4-5.0); ALBUMIN/GLOBULIN RATIO 0.9 (1.0-1.7); CALCIUM 7.9 mg/dL (8.5-10.1); CREATININE 1.1 mg/dL (0.6-1.0); GFR 46.8; POTASSIUM 4.1 mmol/L (3.5-5.1); TOTAL BILIRUBIN 0.4 mg/dL (0.2-1.0); TOTAL PROTEIN 5.6 g/dL (6.4-8.2)
[2017-12-02 07:00] VITALS: BP 99/60
[2017-12-02 07:11] LABS: BASO % 0 % (0-3); EOS % 1 % (0-3); HEMATOCRIT 30.5 % (36.0-47.0); HEMOGLOBIN 10.7 g/dL (12.0-15.5); LYMPH # 1.3 x10^3/uL (1.0-4.8); LYMPH % 19 % (24-48); MEAN CORPUSCULAR HEMOGLOBIN 32 pg (25-35); MEAN CORPUSCULAR HGB CONC 35 g/dL (31-37); MEAN CORPUSCULAR VOLUME 92 fL (79-100); MONO # 0.8 x10^3/uL (0.0-1.1); MONO % 11 % (0-9); NEUT # 4.8 x10^3uL (1.8-7.7); NEUT % 69 % (31-73); PLATELET COUNT 184 x10^3/uL (140-400); RED BLOOD COUNT 3.32 x10^6/uL (3.50-5.40); RED CELL DISTRIBUTION WIDTH 15.3 % (11.5-14.5)
[2017-12-02] MEDS ORDERED: ASPIRIN 325 MG TABLET PO SCH (08:00)
[2017-12-02] MEDS ORDERED: CLOPIDOGREL BISULFATE 75 MG TABLET PO SCH (08:00)
[2017-12-02] MEDS: LISINOPRIL 20 MG TABLET PO SCH (08:32)
[2017-12-02 11:00] VITALS: BP 140/90
--- NOTE | 2017-12-02 11:11 | PDOC ---
PROGRESS NOTES History of Present Illness History of Present Illness ASSESSMENT PLAN: Pseudoaneurysm after cardiac catheterization. Vascular Surgery.for repair cyndi well POD# 1 monitor labs, cardiac monitoring, PT, OT, wound care. will arrange home health on d/c Vitals Vitals Vital Signs Date Time Temp Pulse Resp B/P (MAP) Pulse Ox O2 Delivery O2 Flow Rate FiO2 12/02/17 08:32 77 99/60 12/02/17 07:00 98.3 18 92 Room Air 98.3 12/01/17 11:30 2.0 Physical Exam Physical Exam HENT: Normocephalic, atraumatic, bilateral external ears normal, oropharynx moist Neck: Normal range of motion, no tenderness Cardiovascular:Heart rate regular rhythm Lungs & Thorax: Bilateral breath sounds clear to auscultation Abdomen: Bowel sounds normal, soft Skin: Warm, dry, no erythema, no rash Extremities: area of swelling over the right radial artery on the volar aspect of the wrist. ecchymosis. Distal cap refill < 2 seconds. Palpable radial/ ulnar pulses are present. Neurologic: Alert and oriented X 3 Psychologic: Affect normal General: Alert, Oriented X3, Cooperative, No acute distress Heart: Regular rate Lungs: Clear Abdomen: Normal bowel sounds, Soft Extremities: No cyanosis Skin: No significant lesion Labs LABS Laboratory Tests Test 12/02/17 06:20 White Blood Count 7.0 x10^3/uL (4.0-11.0) Red Blood Count 3.32 x10^6/uL (3.50-5.40) Hemoglobin 10.7 g/dL (12.0-15.5) Hematocrit 30.5 % (36.0-47.0) Mean Corpuscular Volume 92 fL (79-100) Mean Corpuscular Hemoglobin 32 pg (25-35) Mean Corpuscular Hemoglobin Concent 35 g/dL (31-37) Red Cell Distribution Width 15.3 % (11.5-14.5) Platelet Count 184 x10^3/uL (140-400) Neutrophils (%) (Auto) 69 % (31-73) Lymphocytes (%) (Auto) 19 % (24-48) Monocytes (%) (Auto) 11 % (0-9) Eosinophils (%) (Auto) 1 % (0-3) Basophils (%) (Auto) 0 % (0-3) Neutrophils # (Auto) 4.8 x10^3uL (1.8-7.7) Lymphocytes # (Auto) 1.3 x10^3/uL (1.0-4.8) Monocytes # (Auto) 0.8 x10^3/uL (0.0-1.1) Eosinophils # (Auto) 0.0 x10^3/uL (0.0-0.7) Basophils # (Auto) 0.0 x10^3/uL (0.0-0.2) Sodium Level 133 mmol/L (136-145) Potassium Level 4.1 mmol/L (3.5-5.1) Chloride Level 103 mmol/L (98-107) Carbon Dioxide Level 24 mmol/L (21-32) Anion Gap 6 (6-14) Blood Urea Nitrogen 15 mg/dL (7-20) Creatinine 1.1 mg/dL (0.6-1.0) Estimated GFR (Cockcroft-Gault) 46.8 BUN/Creatinine Ratio 14 (6-20) Glucose Level 86 mg/dL (70-99) Calcium Level 7.9 mg/dL (8.5-10.1) Total Bilirubin 0.4 mg/dL (0.2-1.0) Aspartate Amino Transf (AST/SGOT) 21 U/L (15-37) Alanine Aminotransferase (ALT/SGPT) 16 U/L (14-59) Alkaline Phosphatase 59 U/L (46-116) Total Protein 5.6 g/dL (6.4-8.2) Albumin 2.6 g/dL (3.4-5.0) Albumin/Globulin Ratio 0.9 (1.0-1.7) Assessment and Plan Assessmemt and Plan Problems Medical Problems: (1) Pseudoaneurysm Status: Acute Comment Review of Relevant I have reviewed the following items mikie (where applicable) has been applied. Labs Laboratory Tests Test 11/30/17 17:18 12/01/17 04:30 12/02/17 06:20 White Blood Count 10.1 x10^3/uL (4.0-11.0) 7.0 x10^3/uL (4.0-11.0) Red Blood Count 4.27 x10^6/uL (3.50-5.40) 3.32 x10^6/uL (3.50-5.40) Hemoglobin 13.3 g/dL (12.0-15.5) 10.7 g/dL (12.0-15.5) Hematocrit 39.1 % (36.0-47.0) 30.5 % (36.0-47.0) Mean Corpuscular Volume 91 fL (79-100) 92 fL (79-100) Mean Corpuscular Hemoglobin 31 pg (25-35) 32 pg (25-35) Mean Corpuscular Hemoglobin Concent 34 g/dL (31-37) 35 g/dL (31-37) Red Cell Distribution Width 15.7 % (11.5-14.5) 15.3 % (11.5-14.5) Platelet Count 233 x10^3/uL (140-400) 184 x10^3/uL (140-400) Neutrophils (%) (Auto) 76 % (31-73) 69 % (31-73) Lymphocytes (%) (Auto) 14 % (24-48) 19 % (24-48) Monocytes (%) (Auto) 9 % (0-9) 11 % (0-9) Eosinophils (%) (Auto) 1 % (0-3) 1 % (0-3) Basophils (%) (Auto) 0 % (0-3) 0 % (0-3) Neutrophils # (Auto) 7.7 x10^3uL (1.8-7.7) 4.8 x10^3uL (1.8-7.7) Lymphocytes # (Auto) 1.4 x10^3/uL (1.0-4.8) 1.3 x10^3/uL (1.0-4.8) Monocytes # (Auto) 0.9 x10^3/uL (0.0-1.1) 0.8 x10^3/uL (0.0-1.1) Eosinophils # (Auto) 0.1 x10^3/uL (0.0-0.7) 0.0 x10^3/uL (0.0-0.7) Basophils # (Auto) 0.0 x10^3/uL (0.0-0.2) 0.0 x10^3/uL (0.0-0.2) Prothrombin Time 13.9 SEC (11.7-14.0) Prothromb Time International Ratio 1.1 (0.8-1.1) Activated Partial Thromboplast Time 32 SEC (24-38) Sodium Level 131 mmol/L (136-145) 134 mmol/L (136-145) 133 mmol/L (136-145) Potassium Level 4.6 mmol/L (3.5-5.1) 3.9 mmol/L (3.5-5.1) 4.1 mmol/L (3.5-5.1) Chloride Level 96 mmol/L (98-107) 102 mmol/L (98-107) 103 mmol/L (98-107) Carbon Dioxide Level 27 mmol/L (21-32) 24 mmol/L (21-32) 24 mmol/L (21-32) Anion Gap 8 (6-14) 8 (6-14) 6 (6-14) Blood Urea Nitrogen 22 mg/dL (7-20) 19 mg/dL (7-20) 15 mg/dL (7-20) Creatinine 1.3 mg/dL (0.6-1.0) 1.1 mg/dL (0.6-1.0) 1.1 mg/dL (0.6-1.0) Estimated GFR (Cockcroft-Gault) 38.6 46.8 46.8 Glucose Level 98 mg/dL (70-99) 84 mg/dL (70-99) 86 mg/dL (70-99) Calcium Level 9.7 mg/dL (8.5-10.1) 8.7 mg/dL (8.5-10.1) 7.9 mg/dL (8.5-10.1) Total Bilirubin 0.8 mg/dL (0.2-1.0) 0.4 mg/dL (0.2-1.0) Direct Bilirubin 0.2 mg/dL (0.0-0.2) Aspartate Amino Transf (AST/SGOT) 33 U/L (15-37) 21 U/L (15-37) Alanine Aminotransferase (ALT/SGPT) 27 U/L (14-59) 16 U/L (14-59) Alkaline Phosphatase 85 U/L (46-116) 59 U/L (46-116) Total Protein 7.9 g/dL (6.4-8.2) 5.6 g/dL (6.4-8.2) Albumin 4.0 g/dL (3.4-5.0) 2.6 g/dL (3.4-5.0) BUN/Creatinine Ratio 14 (6-20) Albumin/Globulin Ratio 0.9 (1.0-1.7) Laboratory Tests Test 12/02/17 06:20 White Blood Count 7.0 x10^3/uL (4.0-11.0) Red Blood Count 3.32 x10^6/uL (3.50-5.40) Hemoglobin 10.7 g/dL (12.0-15.5) Hematocrit 30.5 % (36.0-47.0) Mean Corpuscular Volume 92 fL (79-100) Mean Corpuscular Hemoglobin 32 pg (25-35) Mean Corpuscular Hemoglobin Concent 35 g/dL (31-37) Red Cell Distribution Width 15.3 % (11.5-14.5) Platelet Count 184 x10^3/uL (140-400) Neutrophils (%) (Auto) 69 % (31-73) Lymphocytes (%) (Auto) 19 % (24-48) Monocytes (%) (Auto) 11 % (0-9) Eosinophils (%) (Auto) 1 % (0-3) Basophils (%) (Auto) 0 % (0-3) Neutrophils # (Auto) 4.8 x10^3uL (1.8-7.7) Lymphocytes # (Auto) 1.3 x10^3/uL (1.0-4.8) Monocytes # (Auto) 0.8 x10^3/uL (0.0-1.1) Eosinophils # (Auto) 0.0 x10^3/uL (0.0-0.7) Basophils # (Auto) 0.0 x10^3/uL (0.0-0.2) Sodium Level 133 mmol/L (136-145) Potassium Level 4.1 mmol/L (3.5-5.1) Chloride Level 103 mmol/L (98-107) Carbon Dioxide Level 24 mmol/L (21-32) Anion Gap 6 (6-14) Blood Urea Nitrogen 15 mg/dL (7-20) Creatinine 1.1 mg/dL (0.6-1.0) Estimated GFR (Cockcroft-Gault) 46.8 BUN/Creatinine Ratio 14 (6-20) Glucose Level 86 mg/dL (70-99) Calcium Level 7.9 mg/dL (8.5-10.1) Total Bilirubin 0.4 mg/dL (0.2-1.0) Aspartate Amino Transf (AST/SGOT) 21 U/L (15-37) Alanine Aminotransferase (ALT/SGPT) 16 U/L (14-59) Alkaline Phosphatase 59 U/L (46-116) Total Protein 5.6 g/dL (6.4-8.2) Albumin 2.6 g/dL (3.4-5.0) Albumin/Globulin Ratio 0.9 (1.0-1.7) Medications Current Medications Ondansetron HCl (Zofran) 4 mg PRN Q8HRS PRN IV NAUSEA/VOMITING Last administered on 12/01/17at 12:39; Start 11/30/17 at 16:15; Stop 12/01/17 at 16:14; Status DC Morphine Sulfate (Morphine Sulfate) 2 mg PRN Q2HR PRN IV PAIN; Start 11/30/17 at 16:15; Stop 12/01/17 at 16:14; Status DC Sodium Chloride 1,000 ml @ 70 mls/hr [id number] IV Last administered on 12/01/17at 12:38; Start 11/30/17 at 23:59; Stop 12/01/17 at 23:58; Status DC Acetaminophen (Tylenol) 650 mg PRN Q4HRS PRN PO FEVER Last administered on at 12:39; Start 11/30/17 at 16:15; Stop 12/01/17 at 16:14; Status DC Clonidine HCl (Catapres) 0.2 mg Q8HRS PO Last administered on 12/01/17at 22:26; Start 11/30/17 at 22:00 Lisinopril (Prinivil) 20 mg DAILY PO Last administered on 12/01/17at 12:36; Start 11/30/17 at 17:00 Alprazolam (Xanax) 1 mg 1X ONCE PO ; Start 11/30/17 at 16:30; Stop 11/30/17 at 16 :32; Status DC Alprazolam (Xanax) 0.5 mg PRN Q8HRS PRN PO ANXIETY / AGITATION Last administered on 12/01/17at 23:06; Start 11/30/17 at 16:30 Alprazolam (Xanax) 1 mg 1X ONCE PO ; Start 11/30/17 at 17:15; Stop 11/30/17 at 17 :15; Status DC Dexamethasone Sodium Phosphate (Decadron) 20 mg STK-MED ONCE .ROUTE ; Start 12/01 at 07:00; Stop 12/01/17 at 07:01; Status DC Ondansetron HCl (Zofran) 4 mg STK-MED ONCE .ROUTE ; Start 12/01/17 at 07:00; Stop 12/01/17 at 07:01; Status DC Propofol 20 ml @ As Directed STK-MED ONCE IV ; Start 12/01/17 at 07:00; Stop 12/01 at 07:01; Status DC Lidocaine HCl (Lidocaine Pf 2% Vial) 5 ml STK-MED ONCE .ROUTE ; Start 12/01/17 at 07:00; Stop 12/01/17 at 07:01; Status DC Cefazolin Sodium 1 gm/Sodium Chloride 500 ml @ 500 mls/hr 1X ONCE IRR Last administered on 12/01/17at 09:03; Start 12/01/17 at 08:00; Stop 12/01/17 at 08:59; Status DC Heparin Sodium (Porcine) 5000 unit/Sodium Chloride 505 ml @ 505 mls/hr 1X ONCE IRR Last administered on 12/01/17at 09:03; Start 12/01/17 at 08:00; Stop 12/01 at 08:59; Status DC Ondansetron HCl (Zofran) 4 mg PRN Q6HRS PRN IV NAUSEA/VOMITING; Start 12/01/17 at 08:00; Stop 12/01/17 at 16:19; Status DC Fentanyl Citrate (Fentanyl 2ml Vial) 25 mcg PRN Q5MIN PRN IV MILD PAIN Last administered on 12/01/17at 10:23; Start 12/01/17 at 08:00; Stop 12/01/17 at 16:20; Status DC Fentanyl Citrate (Fentanyl 2ml Vial) 50 mcg PRN Q5MIN PRN IV MODERATE TO SEVERE PAIN Last administered on 12/01/17at 10:39; Start 12/01/17 at 08:00; Stop at 16:20; Status DC Morphine Sulfate (Morphine Sulfate) 1 mg PRN Q10MIN PRN IV SEVERE PAIN; Start 12/01/17 at 08:00; Stop 12/01/17 at 16:20; Status DC Ringer's Solution 1,000 ml @ 30 mls/hr Q24H IV ; Start 12/01/17 at 07:47; Stop 12/01/17 at 16:20; Status DC Lidocaine HCl (Xylocaine-Mpf 1% 2ml Vial) 2 ml 1X PRN PRN ID IV START; Start at 08:00; Stop 12/01/17 at 16:20; Status DC Hydromorphone HCl (Dilaudid) 0.5 mg PRN Q10MIN PRN IV SEV PAIN, Second choice; Start 12/01/17 at 08:00; Stop 12/01/17 at 16:20; Status DC Prochlorperazine Edisylate (Compazine) 5 mg PACU PRN PRN IV NAUSEA, MRX1; Start 12/01/17 at 08:00; Stop 12/01/17 at 16:20; Status DC Cellulose (Surgicel Fibrillar 1x2) 1 each STK-MED ONCE .ROUTE Last administered on 12/01/17at 08:44; Start 12/01/17 at 07:11; Stop 12/01/17 at 08:11; Status DC Lidocaine HCl (Xylocaine 1% Pf 30ml Vial) 30 ml STK-MED ONCE .ROUTE ; Start 12/01 at 07:11; Stop 12/01/17 at 08:12; Status DC Heparin Sodium (Porcine) (Heparin Sodium) 10,000 unit STK-MED ONCE .ROUTE ; Start 12/01/17 at 08:46; Stop 12/01/17 at 08:47; Status DC Cefazolin Sodium 50 ml @ 100 mls/hr 1X ONCE IV Last administered on 12/01/17at 09:42; Start 12/01/17 at 09:00; Stop 12/01/17 at 09:29; Status DC Protamine Sulfate (Protamine) 50 mg STK-MED ONCE IV ; Start 12/01/17 at 09:36; Stop 12/01/17 at 09:37; Status DC Propofol 20 ml @ As Directed STK-MED ONCE IV ; Start 12/01/17 at 09:36; Stop 12/01 at 09:37; Status DC Dexamethasone Sodium Phosphate (Decadron) 20 mg STK-MED ONCE .ROUTE ; Start 12/01 at 09:36; Stop 12/01/17 at 09:37; Status DC Ondansetron HCl (Zofran) 4 mg STK-MED ONCE .ROUTE ; Start 12/01/17 at 09:37; Stop 12/01/17 at 09:38; Status DC Sevoflurane (Ultane) 60 ml STK-MED ONCE IH ; Start 12/01/17 at 09:37; Stop at 09:38; Status DC Phenylephrine HCl (PHENYLEPHRINE in 0.9% NACL PF) 1 mg STK-MED ONCE IV ; Start 12/01/17 at 09:37; Stop 12/01/17 at 09:38; Status DC Aspirin (Tatiana Aspirin) 325 mg DAILYWBKFT PO Last administered on 12/02/17at 08: 31; Start 12/02/17 at 08:00 Clopidogrel Bisulfate (Plavix) 75 mg DAILYWBKFT PO Last administered on at 08:32; Start 12/02/17 at 08:00 Fentanyl Citrate (Fentanyl 2ml Vial) 100 mcg STK-MED ONCE .ROUTE ; Start at 10:06; Stop 12/01/17 at 10:07; Status DC Acetaminophen/ Hydrocodone Bitart (Lortab 5/325) 1 tab PRN Q4HRS PRN PO PAIN; Start 12/01/17 at 10:15 Cefazolin Sodium 1 gm/Dextrose 50 ml @ 100 mls/hr Q8HRS IV ; Start 12/01/17 at 14:00; Stop 12/02/17 at 13:59; Status UNV Cefazolin Sodium (Ancef) 1 gm Q8HRS IVP Last administered on 12/02/17at 05:56; Start 12/01/17 at 14:00; Stop 12/02/17 at 13:59 Active Scripts Active Reported Clopidogrel (Clopidogrel Bisulfate) 75 Mg Tablet 1 Tab PO DAILY Aspirin 325 Mg Tablet 1 Tab PO DAILY Furosemide 20 Mg Tablet 1 Tab PO DAILY Biotin 1,000 Mcg Tab.chew 1,000 Mcg PO DAILY Coq10 (Ubidecarenone) 50 Mg Tab.chew 50 Mg PO Vitamin D3 (Cholecalciferol (Vitamin D3)) 1,000 Unit Tablet 0.5 Tab PO DAILY Jenise-D 12 Hour Tablet (Fexofenadine/Pseudoephedrine) 1 Each Tab.er.12h 1 Tab PO BID Atorvastatin Calcium 10 Mg Tablet 1 Tab PO DAILY Lisinopril 20 Mg Tablet 1 Tab PO BID Cardio Tea (Green Tea Lopeno Extract) 1 Each Capsule 1 Each PO DAILY Alprazolam 0.5 Mg Tablet 1 Tab PO TID Ferrous Gluconate 324 Mg Tablet 324 Mg PO DAILY Multivitamins (Multivitamin) 1 Each Tablet 1 Tab PO DAILY Jenise Allergy (Fexofenadine Hcl) 60 Mg Tablet 60 Mg PO PRN BID PRN Flonase Allergy Relief (Fluticasone Propionate) 9.9 Ml [place].susp 2 Sprays NS PRN DAILY PRN Nitrostat (Nitroglycerin) 0.4 Mg Tab.subl 0.4 Mg SL PRN Q5MIN PRN Amitriptyline Hcl 25 Mg Tablet 1 Tab PO QHS Benazepril Hcl 20 Mg Tablet 1 Tab PO DAILY Clonidine Hcl 0.1 Mg Tablet 0.1 Mg PO TID Toprol Xl (Metoprolol Succinate) 50 Mg Tab.er.24h 1 Tab PO DAILY Levothyroxine Sodium 50 Mcg Tablet 1.5 Tab PO DAILY Vitals/I & O Vital Sign - Last 24 Hours 12/01/17 12/01/17 12/01/17 12/01/17 11:15 11:15 11:15 11:30 Pulse 77 76 B/P (MAP) 146/78 (100) 147/102 (117) Pulse Ox 96 96 O2 Delivery Room Air Room Air Nasal Cannula O2 Flow Rate 2.0 2.0 2.0 12/01/17 12/01/17 12/01/17 12/01/17 11:30 11:45 12:00 12:15 Pulse 75 79 78 B/P (MAP) 124/79 (94) 142/76 (98) 139/82 (101) Pulse Ox 95 96 94 O2 Delivery Nasal Cannula Room Air Room Air Room Air O2 Flow Rate 2.0 12/01/17 12/01/17 12/01/173/18 12:36 13:15 15:00 15:15 Temp 98.1 98.1 Pulse 80 72 102 Resp 18 B/P (MAP) 139/82 136/86 (103) 148/91 (110) 134/80 (98) Pulse Ox 97 92 97 O2 Delivery Room Air Room Air Room Air 12/01/17 12/01/17 12/01/17 12/01/17 15:18 19:00 22:26 23:00 Temp 97.9 97.7 97.9 97.7 Pulse 86 89 87 Resp 18 B/P (MAP) 134/80 103/58 (73) 123/80 123/80 (94) Pulse Ox 92 92 O2 Delivery Room Air Room Air 12/02/17 12/02/17 12/02/17 12/02/17 03:00 05:47 07:00 08:32 Temp 98.6 98.3 98.6 98.3 Pulse 71 71 77 77 Resp 18 B/P (MAP) 87/51 (63) 87/51 99/60 (73) 99/60 Pulse Ox 92 92 O2 Delivery Room Air Room Air Intake and Output 12/01/17 12/01/17 12/02/17 15:00 23:00 07:00 Intake Total 1000 ml Output Total 400 ml Balance 600 ml DONALD COCHRAN MD Dec 02, 2017 11:11
--- NOTE | 2017-12-02 12:28 | PDOC ---
DANK GARDNER [employer]PERVIS[employer] 12/02/17 1228: CARDIO Progress Notes Date and Time Date of Service 12/02/2017 Time of Evaluation 1226 Subjective Subjective: No Chest Pain, No shortness of breath, No Palpitations, No Dizziness, Other (left arm sore) Vitals Vitals Vital Signs Date Time Temp Pulse Resp B/P (MAP) Pulse Ox O2 Delivery O2 Flow Rate FiO2 12/02/17 11:00 98.2 91 18 140/90 (107) 95 Room Air 98.2 12/01/17 11:30 2.0 Weight Weight [ ] Input and Output Intake and Output Intake and Output 12/02/17 07:00 Intake Total 1000 ml Output Total 400 ml Balance 600 ml Intake IV Total 1000 ml Output Urine Total 400 ml # Voids 5 Laboratory Labs Laboratory Tests Test 12/02/17 06:20 White Blood Count 7.0 x10^3/uL (4.0-11.0) Red Blood Count 3.32 x10^6/uL (3.50-5.40) Hemoglobin 10.7 g/dL (12.0-15.5) Hematocrit 30.5 % (36.0-47.0) Mean Corpuscular Volume 92 fL (79-100) Mean Corpuscular Hemoglobin 32 pg (25-35) Mean Corpuscular Hemoglobin Concent 35 g/dL (31-37) Red Cell Distribution Width 15.3 % (11.5-14.5) Platelet Count 184 x10^3/uL (140-400) Neutrophils (%) (Auto) 69 % (31-73) Lymphocytes (%) (Auto) 19 % (24-48) Monocytes (%) (Auto) 11 % (0-9) Eosinophils (%) (Auto) 1 % (0-3) Basophils (%) (Auto) 0 % (0-3) Neutrophils # (Auto) 4.8 x10^3uL (1.8-7.7) Lymphocytes # (Auto) 1.3 x10^3/uL (1.0-4.8) Monocytes # (Auto) 0.8 x10^3/uL (0.0-1.1) Eosinophils # (Auto) 0.0 x10^3/uL (0.0-0.7) Basophils # (Auto) 0.0 x10^3/uL (0.0-0.2) Sodium Level 133 mmol/L (136-145) Potassium Level 4.1 mmol/L (3.5-5.1) Chloride Level 103 mmol/L (98-107) Carbon Dioxide Level 24 mmol/L (21-32) Anion Gap 6 (6-14) Blood Urea Nitrogen 15 mg/dL (7-20) Creatinine 1.1 mg/dL (0.6-1.0) Estimated GFR (Cockcroft-Gault) 46.8 BUN/Creatinine Ratio 14 (6-20) Glucose Level 86 mg/dL (70-99) Calcium Level 7.9 mg/dL (8.5-10.1) Total Bilirubin 0.4 mg/dL (0.2-1.0) Aspartate Amino Transf (AST/SGOT) 21 U/L (15-37) Alanine Aminotransferase (ALT/SGPT) 16 U/L (14-59) Alkaline Phosphatase 59 U/L (46-116) Total Protein 5.6 g/dL (6.4-8.2) Albumin 2.6 g/dL (3.4-5.0) Albumin/Globulin Ratio 0.9 (1.0-1.7) Case Discussion Case Discussed with: Other (vascular FOAM CHARGER) Physical Exam HEENT: Neck Supple W Full Motion Chest: Symmetric LUNGS: Clear to Auscultation Heart: RRR Abdomen: Soft N/T Extremities: Other (left UE with bruising in all fingers/hand, fingers mobile; can not yet make a fist; fingers warmish; dressing intact to left UE) Neurology: alert, follow commands Assessment Assessment 1. Right radial artery pseudoaneurysm. --s/p repair with vein patch --per vascular surgery. 2. Coronary artery disease --PCI/ALVA to RCA on 11/28/2017; remains on DAPT --no angina 3. Hypertension. --control with oral meds 4. Hyperlipidemia. --control with statins Agreeable with discharge when planned by primary service; f/u with cardiology as previously scheduled. NATANAEL HILL MD 12/02/17 6344: CARDIO Progress Notes Assessment Assessment Patient seen and examined. Agree with FOAM CHARGER's assessment and plan. s/p surgical repair of radial artery pseudoaneurysm CAD status clinically stable Follow-up with vascular surgery as scheduled Follow-up with our office in 1 month DANK GARDNER APRN Dec 02, 2017 12:28 NATANAEL HILL MD Dec 02, 2017 14:51
[2017-12-02] MEDS: ALPRAZolam 0.5 MG TABLET PO PRN (12:30)
--- NOTE | 2017-12-02 12:57 | PDOC ---
PROGRESS NOTES Subjective Subjective "I want to go home today. Do you think that might be possible?" Objective Objective Vascular Surgery - POD#1 Right radial artery pseudoaneurysm repair secondary to recent cardiac catheterization. S: Denies pain to right arm. States she has little bit of numbness to fingers 3,4,5 of right hand. O: Sitting up in chair with right arm elevated on pillows. at bedside. RUE: Dressing removed. Incision to forearm and right wrist intact. No hematoma present. Ecchymosis noted to most of the forearm but has not migrated into hand or elbow much. Has full ROM and strength. No motor or sensory deficits noted. Fine- motor function intact. Cap refill to fingers 2+ sec. Doppler flow auscultated in palmar right hand, right ulnar artery and distal radial at thumb portion. Slight swelling of right hand, most likely due to yon wrap to forearm and not including hand. Assessment/Plan: 1. Right radial artery pseudoaneurysm, which is approximately 2.5 cm in diameter with surrounding bruising secondary to a recent cardiac catheterization. POD#1 repair with vein patch. Patent right radial artery. Continue antiplatelet therapy with both ASA and Plavix. 2. Ok to remove dressing tomorrow and patient may begin to shower tomorrow. No need to redress incisions. 3. Continue RUE elevation for 1 week when not using right arm. May use arm for all ADL's and ad karen. 4. Follow up scheduled with Dr. Freire in 10 days. Appt 12/10/17 at 2:30 at our [facility] office. 5. Continue previous post-cath orders as per cardiology. Vital Signs Date Time Temp Pulse Resp B/P (MAP) Pulse Ox O2 Delivery O2 Flow Rate FiO2 12/02/17 11:00 98.2 91 18 140/90 (107) 95 Room Air 98.2 12/01/17 11:30 2.0 Intake and Output 12/02/17 07:00 Intake Total 1000 ml Output Total 400 ml Balance 600 ml Intake IV Total 1000 ml Output Urine Total 400 ml # Voids 5 Assessment Assessment Problems Medical Problems: (1) Pseudoaneurysm Status: Acute Comment Review of Relevant I have reviewed the following items mikie (where applicable) has been applied. Labs Laboratory Tests Test 11/30/17 17:18 12/01/17 04:30 12/02/17 06:20 White Blood Count 10.1 x10^3/uL (4.0-11.0) 7.0 x10^3/uL (4.0-11.0) Red Blood Count 4.27 x10^6/uL (3.50-5.40) 3.32 x10^6/uL (3.50-5.40) Hemoglobin 13.3 g/dL (12.0-15.5) 10.7 g/dL (12.0-15.5) Hematocrit 39.1 % (36.0-47.0) 30.5 % (36.0-47.0) Mean Corpuscular Volume 91 fL (79-100) 92 fL (79-100) Mean Corpuscular Hemoglobin 31 pg (25-35) 32 pg (25-35) Mean Corpuscular Hemoglobin Concent 34 g/dL (31-37) 35 g/dL (31-37) Red Cell Distribution Width 15.7 % (11.5-14.5) 15.3 % (11.5-14.5) Platelet Count 233 x10^3/uL (140-400) 184 x10^3/uL (140-400) Neutrophils (%) (Auto) 76 % (31-73) 69 % (31-73) Lymphocytes (%) (Auto) 14 % (24-48) 19 % (24-48) Monocytes (%) (Auto) 9 % (0-9) 11 % (0-9) Eosinophils (%) (Auto) 1 % (0-3) 1 % (0-3) Basophils (%) (Auto) 0 % (0-3) 0 % (0-3) Neutrophils # (Auto) 7.7 x10^3uL (1.8-7.7) 4.8 x10^3uL (1.8-7.7) Lymphocytes # (Auto) 1.4 x10^3/uL (1.0-4.8) 1.3 x10^3/uL (1.0-4.8) Monocytes # (Auto) 0.9 x10^3/uL (0.0-1.1) 0.8 x10^3/uL (0.0-1.1) Eosinophils # (Auto) 0.1 x10^3/uL (0.0-0.7) 0.0 x10^3/uL (0.0-0.7) Basophils # (Auto) 0.0 x10^3/uL (0.0-0.2) 0.0 x10^3/uL (0.0-0.2) Prothrombin Time 13.9 SEC (11.7-14.0) Prothromb Time International Ratio 1.1 (0.8-1.1) Activated Partial Thromboplast Time 32 SEC (24-38) Sodium Level 131 mmol/L (136-145) 134 mmol/L (136-145) 133 mmol/L (136-145) Potassium Level 4.6 mmol/L (3.5-5.1) 3.9 mmol/L (3.5-5.1) 4.1 mmol/L (3.5-5.1) Chloride Level 96 mmol/L (98-107) 102 mmol/L (98-107) 103 mmol/L (98-107) Carbon Dioxide Level 27 mmol/L (21-32) 24 mmol/L (21-32) 24 mmol/L (21-32) Anion Gap 8 (6-14) 8 (6-14) 6 (6-14) Blood Urea Nitrogen 22 mg/dL (7-20) 19 mg/dL (7-20) 15 mg/dL (7-20) Creatinine 1.3 mg/dL (0.6-1.0) 1.1 mg/dL (0.6-1.0) 1.1 mg/dL (0.6-1.0) Estimated GFR (Cockcroft-Gault) 38.6 46.8 46.8 Glucose Level 98 mg/dL (70-99) 84 mg/dL (70-99) 86 mg/dL (70-99) Calcium Level 9.7 mg/dL (8.5-10.1) 8.7 mg/dL (8.5-10.1) 7.9 mg/dL (8.5-10.1) Total Bilirubin 0.8 mg/dL (0.2-1.0) 0.4 mg/dL (0.2-1.0) Direct Bilirubin 0.2 mg/dL (0.0-0.2) Aspartate Amino Transf (AST/SGOT) 33 U/L (15-37) 21 U/L (15-37) Alanine Aminotransferase (ALT/SGPT) 27 U/L (14-59) 16 U/L (14-59) Alkaline Phosphatase 85 U/L (46-116) 59 U/L (46-116) Total Protein 7.9 g/dL (6.4-8.2) 5.6 g/dL (6.4-8.2) Albumin 4.0 g/dL (3.4-5.0) 2.6 g/dL (3.4-5.0) BUN/Creatinine Ratio 14 (6-20) Albumin/Globulin Ratio 0.9 (1.0-1.7) Laboratory Tests Test 12/02/17 06:20 White Blood Count 7.0 x10^3/uL (4.0-11.0) Red Blood Count 3.32 x10^6/uL (3.50-5.40) Hemoglobin 10.7 g/dL (12.0-15.5) Hematocrit 30.5 % (36.0-47.0) Mean Corpuscular Volume 92 fL (79-100) Mean Corpuscular Hemoglobin 32 pg (25-35) Mean Corpuscular Hemoglobin Concent 35 g/dL (31-37) Red Cell Distribution Width 15.3 % (11.5-14.5) Platelet Count 184 x10^3/uL (140-400) Neutrophils (%) (Auto) 69 % (31-73) Lymphocytes (%) (Auto) 19 % (24-48) Monocytes (%) (Auto) 11 % (0-9) Eosinophils (%) (Auto) 1 % (0-3) Basophils (%) (Auto) 0 % (0-3) Neutrophils # (Auto) 4.8 x10^3uL (1.8-7.7) Lymphocytes # (Auto) 1.3 x10^3/uL (1.0-4.8) Monocytes # (Auto) 0.8 x10^3/uL (0.0-1.1) Eosinophils # (Auto) 0.0 x10^3/uL (0.0-0.7) Basophils # (Auto) 0.0 x10^3/uL (0.0-0.2) Sodium Level 133 mmol/L (136-145) Potassium Level 4.1 mmol/L (3.5-5.1) Chloride Level 103 mmol/L (98-107) Carbon Dioxide Level 24 mmol/L (21-32) Anion Gap 6 (6-14) Blood Urea Nitrogen 15 mg/dL (7-20) Creatinine 1.1 mg/dL (0.6-1.0) Estimated GFR (Cockcroft-Gault) 46.8 BUN/Creatinine Ratio 14 (6-20) Glucose Level 86 mg/dL (70-99) Calcium Level 7.9 mg/dL (8.5-10.1) Total Bilirubin 0.4 mg/dL (0.2-1.0) Aspartate Amino Transf (AST/SGOT) 21 U/L (15-37) Alanine Aminotransferase (ALT/SGPT) 16 U/L (14-59) Alkaline Phosphatase 59 U/L (46-116) Total Protein 5.6 g/dL (6.4-8.2) Albumin 2.6 g/dL (3.4-5.0) Albumin/Globulin Ratio 0.9 (1.0-1.7) Medications Current Medications Ondansetron HCl (Zofran) 4 mg PRN Q8HRS PRN IV NAUSEA/VOMITING Last administered on 12/01/17 12:39; Start 11/30/17 at 16:15; Stop 12/01/17 at 16:14; Status DC Morphine Sulfate (Morphine Sulfate) 2 mg PRN Q2HR PRN IV PAIN; Start 11/30/17 at 16:15; Stop 12/01/17 at 16:14; Status DC Sodium Chloride 1,000 ml @ 70 mls/hr [id number] IV Last administered on 12/01/17at 12:38; Start 11/30/17 at 23:59; Stop 12/01/17 at 23:58; Status DC Acetaminophen (Tylenol) 650 mg PRN Q4HRS PRN PO FEVER Last administered on at 12:39; Start 11/30/17 at 16:15; Stop 12/01/17 at 16:14; Status DC Clonidine HCl (Catapres) 0.2 mg Q8HRS PO Last administered on 12/01/17at 22:26; Start 11/30/17 at 22:00 Lisinopril (Prinivil) 20 mg DAILY PO Last administered on 12/01/17at 12:36; Start 11/30/17 at 17:00 Alprazolam (Xanax) 1 mg 1X ONCE PO ; Start 11/30/17 at 16:30; Stop 11/30/17 at 16 :32; Status DC Alprazolam (Xanax) 0.5 mg PRN Q8HRS PRN PO ANXIETY / AGITATION Last administered on 12/02/17at 12:30; Start 11/30/17 at 16:30 Alprazolam (Xanax) 1 mg 1X ONCE PO ; Start 11/30/17 at 17:15; Stop 11/30/17 at 17 :15; Status DC Dexamethasone Sodium Phosphate (Decadron) 20 mg STK-MED ONCE .ROUTE ; Start 12/01 at 07:00; Stop 12/01/17 at 07:01; Status DC Ondansetron HCl (Zofran) 4 mg STK-MED ONCE .ROUTE ; Start 12/01/17 at 07:00; Stop 12/01/17 at 07:01; Status DC Propofol 20 ml @ As Directed STK-MED ONCE IV ; Start 12/01/17 at 07:00; Stop 12/01 at 07:01; Status DC Lidocaine HCl (Lidocaine Pf 2% Vial) 5 ml STK-MED ONCE .ROUTE ; Start 12/01/17 at 07:00; Stop 12/01/17 at 07:01; Status DC Cefazolin Sodium 1 gm/Sodium Chloride 500 ml @ 500 mls/hr 1X ONCE IRR Last administered on 12/01/17at 09:03; Start 12/01/17 at 08:00; Stop 12/01/17 at 08:59; Status DC Heparin Sodium (Porcine) 5000 unit/Sodium Chloride 505 ml @ 505 mls/hr 1X ONCE IRR Last administered on 12/01/17at 09:03; Start 12/01/17 at 08:00; Stop 12/01 at 08:59; Status DC Ondansetron HCl (Zofran) 4 mg PRN Q6HRS PRN IV NAUSEA/VOMITING; Start 12/01/17 at 08:00; Stop 12/01/17 at 16:19; Status DC Fentanyl Citrate (Fentanyl 2ml Vial) 25 mcg PRN Q5MIN PRN IV MILD PAIN Last administered on 12/01/17at 10:23; Start 12/01/17 at 08:00; Stop 12/01/17 at 16:20; Status DC Fentanyl Citrate (Fentanyl 2ml Vial) 50 mcg PRN Q5MIN PRN IV MODERATE TO SEVERE PAIN Last administered on 12/01/17at 10:39; Start 12/01/17 at 08:00; Stop at 16:20; Status DC Morphine Sulfate (Morphine Sulfate) 1 mg PRN Q10MIN PRN IV SEVERE PAIN; Start 12/01/17 at 08:00; Stop 12/01/17 at 16:20; Status DC Ringer's Solution 1,000 ml @ 30 mls/hr Q24H IV ; Start 12/01/17 at 07:47; Stop 12/01/17 at 16:20; Status DC Lidocaine HCl (Xylocaine-Mpf 1% 2ml Vial) 2 ml 1X PRN PRN ID IV START; Start at 08:00; Stop 12/01/17 at 16:20; Status DC Hydromorphone HCl (Dilaudid) 0.5 mg PRN Q10MIN PRN IV SEV PAIN, Second choice; Start 12/01/17 at 08:00; Stop 12/01/17 at 16:20; Status DC Prochlorperazine Edisylate (Compazine) 5 mg PACU PRN PRN IV NAUSEA, MRX1; Start 12/01/17 at 08:00; Stop 12/01/17 at 16:20; Status DC Cellulose (Surgicel Fibrillar 1x2) 1 each STK-MED ONCE .ROUTE Last administered on 12/01/17at 08:44; Start 12/01/17 at 07:11; Stop 12/01/17 at 08:11; Status DC Lidocaine HCl (Xylocaine 1% Pf 30ml Vial) 30 ml STK-MED ONCE .ROUTE ; Start 12/01 at 07:11; Stop 12/01/17 at 08:12; Status DC Heparin Sodium (Porcine) (Heparin Sodium) 10,000 unit STK-MED ONCE .ROUTE ; Start 12/01/17 at 08:46; Stop 12/01/17 at 08:47; Status DC Cefazolin Sodium 50 ml @ 100 mls/hr 1X ONCE IV Last administered on 12/01/17at 09:42; Start 12/01/17 at 09:00; Stop 12/01/17 at 09:29; Status DC Protamine Sulfate (Protamine) 50 mg STK-MED ONCE IV ; Start 12/01/17 at 09:36; Stop 12/01/17 at 09:37; Status DC Propofol 20 ml @ As Directed STK-MED ONCE IV ; Start 12/01/17 at 09:36; Stop 12/01 at 09:37; Status DC Dexamethasone Sodium Phosphate (Decadron) 20 mg STK-MED ONCE .ROUTE ; Start 12/01 at 09:36; Stop 12/01/17 at 09:37; Status DC Ondansetron HCl (Zofran) 4 mg STK-MED ONCE .ROUTE ; Start 12/01/17 at 09:37; Stop 12/01/17 at 09:38; Status DC Sevoflurane (Ultane) 60 ml STK-MED ONCE IH ; Start 12/01/17 at 09:37; Stop at 09:38; Status DC Phenylephrine HCl (PHENYLEPHRINE in 0.9% NACL PF) 1 mg STK-MED ONCE IV ; Start 12/01/17 at 09:37; Stop 12/01/17 at 09:38; Status DC Aspirin (Tatiana Aspirin) 325 mg DAILYWBKFT PO Last administered on 12/02/17at 08: 31; Start 12/02/17 at 08:00 Clopidogrel Bisulfate (Plavix) 75 mg DAILYWBKFT PO Last administered on at 08:32; Start 12/02/17 at 08:00 Fentanyl Citrate (Fentanyl 2ml Vial) 100 mcg STK-MED ONCE .ROUTE ; Start at 10:06; Stop 12/01/17 at 10:07; Status DC Acetaminophen/ Hydrocodone Bitart (Lortab 5/325) 1 tab PRN Q4HRS PRN PO PAIN; Start 12/01/17 at 10:15 Cefazolin Sodium 1 gm/Dextrose 50 ml @ 100 mls/hr Q8HRS IV ; Start 12/01/17 at 14:00; Stop 12/02/17 at 13:59; Status UNV Cefazolin Sodium (Ancef) 1 gm Q8HRS IVP Last administered on 12/02/17at 05:56; Start 12/01/17 at 14:00; Stop 12/02/17 at 13:59 Active Scripts Active Reported Clopidogrel (Clopidogrel Bisulfate) 75 Mg Tablet 1 Tab PO DAILY Aspirin 325 Mg Tablet 1 Tab PO DAILY Furosemide 20 Mg Tablet 1 Tab PO DAILY Biotin 1,000 Mcg Tab.chew 1,000 Mcg PO DAILY Coq10 (Ubidecarenone) 50 Mg Tab.chew 50 Mg PO Vitamin D3 (Cholecalciferol (Vitamin D3)) 1,000 Unit Tablet 0.5 Tab PO DAILY Jenise-D 12 Hour Tablet (Fexofenadine/Pseudoephedrine) 1 Each Tab.er.12h 1 Tab PO BID Atorvastatin Calcium 10 Mg Tablet 1 Tab PO DAILY Lisinopril 20 Mg Tablet 1 Tab PO BID Cardio Tea (Green Tea [place] Extract) 1 Each Capsule 1 Each PO DAILY Alprazolam 0.5 Mg Tablet 1 Tab PO TID Ferrous Gluconate 324 Mg Tablet 324 Mg PO DAILY Multivitamins (Multivitamin) 1 Each Tablet 1 Tab PO DAILY Jenise Allergy (Fexofenadine Hcl) 60 Mg Tablet 60 Mg PO PRN BID PRN Flonase Allergy Relief (Fluticasone Propionate) 9.9 Ml [place].susp 2 Sprays NS PRN DAILY PRN Nitrostat (Nitroglycerin) 0.4 Mg Tab.subl 0.4 Mg SL PRN Q5MIN PRN Amitriptyline Hcl 25 Mg Tablet 1 Tab PO QHS Benazepril Hcl 20 Mg Tablet 1 Tab PO DAILY Clonidine Hcl 0.1 Mg Tablet 0.1 Mg PO TID Toprol Xl (Metoprolol Succinate) 50 Mg Tab.er.24h 1 Tab PO DAILY Levothyroxine Sodium 50 Mcg Tablet 1.5 Tab PO DAILY Vitals/I & O Vital Sign - Last 24 Hours 12/01/17 12/01/17 12/01/17 12/01/17 13:15 15:00 15:15 15:18 Temp 98.1 98.1 Pulse 72 102 86 Resp 18 B/P (MAP) 136/86 (103) 148/91 (110) 134/80 (98) 134/80 Pulse Ox 97 92 97 O2 Delivery Room Air Room Air Room Air 12/01/17 12/01/17 12/01/17 12/02/17 19:00 22:26 23:00 03:00 Temp 97.9 97.7 98.6 97.9 97.7 98.6 Pulse 89 87 71 Resp 18 18 18 B/P (MAP) 103/58 (73) 123/80 123/80 (94) 87/51 (63) Pulse Ox 92 92 92 O2 Delivery Room Air Room Air Room Air 12/02/17 12/02/17 12/02/17 12/02/17 05:47 07:00 08:00 08:32 Temp 98.3 98.3 Pulse 71 77 77 Resp 18 B/P (MAP) 87/51 99/60 (73) 99/60 Pulse Ox 92 O2 Delivery Room Air Room Air 12/02/17 11:00 Temp 98.2 98.2 Pulse 91 Resp 18 B/P (MAP) 140/90 (107) Pulse Ox 95 O2 Delivery Room Air Intake and Output 12/01/17 12/01/17 12/02/17 15:00 23:00 07:00 Intake Total 1000 ml Output Total 400 ml Balance 600 ml LEONOR RENO APRN Dec 02, 2017 12:57
--- NOTE | 2017-12-02 14:07 | PDOC3 ---
Discharge Summary Date of Admission: Nov 30, 2017 Date of Discharge: Dec 02, 2017 Follow-Up: 3-5 days Admitting Diagnosis comment: History of Present Illness History of Present Illness ASSESSMENT PLAN: Pseudoaneurysm after cardiac catheterization. Vascular Surgery.for repair cyndi well POD# 1 monitor labs, cardiac monitoring, PT, OT, wound care. will arrange home health on d/c ON ROOM AIR Vitals Vitals Vital Signs Date Time Temp Pulse Resp B/P (MAP) Pulse Ox O2 Delivery O2 Flow Rate FiO2 12/02/17 08:32 77 99/60 12/02/17 07:00 98.3 18 92 Room Air 98.3 12/01/17 11:30 2.0 Physical Exam Physical Exam HENT: Normocephalic, atraumatic, bilateral external ears normal, oropharynx moist Neck: Normal range of motion, no tenderness Cardiovascular:Heart rate regular rhythm Lungs & Thorax: Bilateral breath sounds clear to auscultation Abdomen: Bowel sounds normal, soft Skin: Warm, dry, no erythema, no rash Extremities: DRESSING DRY GOOD ROM Neurologic: Alert and oriented X 3 Psychologic: Affect normal General: Alert, Oriented X3, Cooperative, No acute distress Heart: Regular rate Lungs: Clear Abdomen: Normal bowel sounds, Soft Extremities: No cyanosis Skin: No significant lesion FINAL DIAGNOSIS Problems Medical Problems: (1) Pseudoaneurysm Status: Acute Brief Hospital Course Ms. Adler is a 87 old [sex] who presented with [RADIAL ARTERY ANEURYSM, RIGHT ] CONDITION AT DISCHARGE: Improved Discharge Medications Current Medications Ondansetron HCl (Zofran) 4 mg PRN Q8HRS PRN IV NAUSEA/VOMITING Last administered on 12/01/17at 12:39; Start 11/30/17 at 16:15; Stop 12/01/17 at 16:14; Status DC Morphine Sulfate (Morphine Sulfate) 2 mg PRN Q2HR PRN IV PAIN; Start 11/30/17 at 16:15; Stop 12/01/17 at 16:14; Status DC Sodium Chloride 1,000 ml @ 70 mls/hr [id number] IV Last administered on 12/01/17at 12:38; Start 11/30/17 at 23:59; Stop 12/01/17 at 23:58; Status DC Acetaminophen (Tylenol) 650 mg PRN Q4HRS PRN PO FEVER Last administered on at 12:39; Start 11/30/17 at 16:15; Stop 12/01/17 at 16:14; Status DC Clonidine HCl (Catapres) 0.2 mg Q8HRS PO Last administered on 12/02/17at 13:49; Start 11/30/17 at 22:00 Lisinopril (Prinivil) 20 mg DAILY PO Last administered on 12/01/17at 12:36; Start 11/30/17 at 17:00 Alprazolam (Xanax) 1 mg 1X ONCE PO ; Start 11/30/17 at 16:30; Stop 11/30/17 at 16 :32; Status DC Alprazolam (Xanax) 0.5 mg PRN Q8HRS PRN PO ANXIETY / AGITATION Last administered on 12/02/17at 12:30; Start 11/30/17 at 16:30 Alprazolam (Xanax) 1 mg 1X ONCE PO ; Start 11/30/17 at 17:15; Stop 11/30/17 at 17 :15; Status DC Dexamethasone Sodium Phosphate (Decadron) 20 mg STK-MED ONCE .ROUTE ; Start 12/01 at 07:00; Stop 12/01/17 at 07:01; Status DC Ondansetron HCl (Zofran) 4 mg STK-MED ONCE .ROUTE ; Start 12/01/17 at 07:00; Stop 12/01/17 at 07:01; Status DC Propofol 20 ml @ As Directed STK-MED ONCE IV ; Start 12/01/17 at 07:00; Stop 12/01 at 07:01; Status DC Lidocaine HCl (Lidocaine Pf 2% Vial) 5 ml STK-MED ONCE .ROUTE ; Start 12/01/17 at 07:00; Stop 12/01/17 at 07:01; Status DC Cefazolin Sodium 1 gm/Sodium Chloride 500 ml @ 500 mls/hr 1X ONCE IRR Last administered on 12/01/17at 09:03; Start 12/01/17 at 08:00; Stop 12/01/17 at 08:59; Status DC Heparin Sodium (Porcine) 5000 unit/Sodium Chloride 505 ml @ 505 mls/hr 1X ONCE IRR Last administered on 12/01/17at 09:03; Start 12/01/17 at 08:00; Stop 12/01 at 08:59; Status DC Ondansetron HCl (Zofran) 4 mg PRN Q6HRS PRN IV NAUSEA/VOMITING; Start 12/01/17 at 08:00; Stop 12/01/17 at 16:19; Status DC Fentanyl Citrate (Fentanyl 2ml Vial) 25 mcg PRN Q5MIN PRN IV MILD PAIN Last administered on 12/01/17at 10:23; Start 12/01/17 at 08:00; Stop 12/01/17 at 16:20; Status DC Fentanyl Citrate (Fentanyl 2ml Vial) 50 mcg PRN Q5MIN PRN IV MODERATE TO SEVERE PAIN Last administered on 12/01/17at 10:39; Start 12/01/17 at 08:00; Stop at 16:20; Status DC Morphine Sulfate (Morphine Sulfate) 1 mg PRN Q10MIN PRN IV SEVERE PAIN; Start 12/01/17 at 08:00; Stop 12/01/17 at 16:20; Status DC Ringer's Solution 1,000 ml @ 30 mls/hr Q24H IV ; Start 12/01/17 at 07:47; Stop 12/01/17 at 16:20; Status DC Lidocaine HCl (Xylocaine-Mpf 1% 2ml Vial) 2 ml 1X PRN PRN ID IV START; Start at 08:00; Stop 12/01/17 at 16:20; Status DC Hydromorphone HCl (Dilaudid) 0.5 mg PRN Q10MIN PRN IV SEV PAIN, Second choice; Start 12/01/17 at 08:00; Stop 12/01/17 at 16:20; Status DC Prochlorperazine Edisylate (Compazine) 5 mg PACU PRN PRN IV NAUSEA, MRX1; Start 12/01/17 at 08:00; Stop 12/01/17 at 16:20; Status DC Cellulose (Surgicel Fibrillar 1x2) 1 each STK-MED ONCE .ROUTE Last administered on 12/01/17at 08:44; Start 12/01/17 at 07:11; Stop 12/01/17 at 08:11; Status DC Lidocaine HCl (Xylocaine 1% Pf 30ml Vial) 30 ml STK-MED ONCE .ROUTE ; Start 12/01 at 07:11; Stop 12/01/17 at 08:12; Status DC Heparin Sodium (Porcine) (Heparin Sodium) 10,000 unit STK-MED ONCE .ROUTE ; Start 12/01/17 at 08:46; Stop 12/01/17 at 08:47; Status DC Cefazolin Sodium 50 ml @ 100 mls/hr 1X ONCE IV Last administered on 12/01/17at 09:42; Start 12/01/17 at 09:00; Stop 12/01/17 at 09:29; Status DC Protamine Sulfate (Protamine) 50 mg STK-MED ONCE IV ; Start 12/01/17 at 09:36; Stop 12/01/17 at 09:37; Status DC Propofol 20 ml @ As Directed STK-MED ONCE IV ; Start 12/01/17 at 09:36; Stop 12/01 at 09:37; Status DC Dexamethasone Sodium Phosphate (Decadron) 20 mg STK-MED ONCE .ROUTE ; Start 12/01 at 09:36; Stop 12/01/17 at 09:37; Status DC Ondansetron HCl (Zofran) 4 mg STK-MED ONCE .ROUTE ; Start 12/01/17 at 09:37; Stop 12/01/17 at 09:38; Status DC Sevoflurane (Ultane) 60 ml STK-MED ONCE IH ; Start 12/01/17 at 09:37; Stop at 09:38; Status DC Phenylephrine HCl (PHENYLEPHRINE in 0.9% NACL PF) 1 mg STK-MED ONCE IV ; Start 12/01/17 at 09:37; Stop 12/01/17 at 09:38; Status DC Aspirin (T[place]iana Aspirin) 325 mg DAILYWBKFT PO Last administered on 12/02/17at 08: 31; Start 12/02/17 at 08:00 Clopidogrel Bisulfate (Plavix) 75 mg DAILYWBKFT PO Last administered on at 08:32; Start 12/02/17 at 08:00 Fentanyl Citrate (Fentanyl 2ml Vial) 100 mcg STK-MED ONCE .ROUTE ; Start at 10:06; Stop 12/01/17 at 10:07; Status DC Acetaminophen/ Hydrocodone Bitart (Lortab 5/325) 1 tab PRN Q4HRS PRN PO PAIN; Start 12/01/17 at 10:15 Cefazolin Sodium 1 gm/Dextrose 50 ml @ 100 mls/hr Q8HRS IV ; Start 12/01/17 at 14:00; Stop 12/02/17 at 13:59; Status UNV Cefazolin Sodium (Ancef) 1 gm Q8HRS IVP Last administered on 12/02/17at 05:56; Start 12/01/17 at 14:00; Stop 12/02/17 at 13:59; Status DC Active Scripts Active Reported Clopidogrel (Clopidogrel Bisulfate) 75 Mg Tablet 1 Tab PO DAILY Aspirin 325 Mg Tablet 1 Tab PO DAILY Furosemide 20 Mg Tablet 1 Tab PO DAILY Biotin 1,000 Mcg Tab.chew 1,000 Mcg PO DAILY Coq10 (Ubidecarenone) 50 Mg Tab.chew 50 Mg PO Vitamin D3 (Cholecalciferol (Vitamin D3)) 1,000 Unit Tablet 0.5 Tab PO DAILY Jenise-D 12 Hour Tablet (Fexofenadine/Pseudoephedrine) 1 Each Tab.er.12h 1 Tab PO BID Atorvastatin Calcium 10 Mg Tablet 1 Tab PO DAILY Lisinopril 20 Mg Tablet 1 Tab PO BID Cardio Tea (Green Tea [place] Extract) 1 Each Capsule 1 Each PO DAILY Alprazolam 0.5 Mg Tablet 1 Tab PO TID Ferrous Gluconate 324 Mg Tablet 324 Mg PO DAILY Multivitamins (Multivitamin) 1 Each Tablet 1 Tab PO DAILY Jenise Allergy (Fexofenadine Hcl) 60 Mg Tablet 60 Mg PO PRN BID PRN Flonase Allergy Relief (Fluticasone Propionate) 9.9 Ml [place].susp 2 Sprays NS PRN DAILY PRN Nitrostat (Nitroglycerin) 0.4 Mg Tab.subl 0.4 Mg SL PRN Q5MIN PRN Amitriptyline Hcl 25 Mg Tablet 1 Tab PO QHS Benazepril Hcl 20 Mg Tablet 1 Tab PO DAILY Clonidine Hcl 0.1 Mg Tablet 0.1 Mg PO TID Toprol Xl (Metoprolol Succinate) 50 Mg Tab.er.24h 1 Tab PO DAILY Levothyroxine Sodium 50 Mcg Tablet 1.5 Tab PO DAILY Vital Signs Vital Signs Date Time Temp Pulse Resp B/P (MAP) Pulse Ox O2 Delivery O2 Flow Rate FiO2 12/02/17 13:49 74 125/75 12/02/17 11:00 98.2 18 95 Room Air 98.2 12/01/17 11:30 2.0 Labs Laboratory Tests Test 11/30/17 17:18 12/01/17 04:30 12/02/17 06:20 White Blood Count 10.1 x10^3/uL (4.0-11.0) 7.0 x10^3/uL (4.0-11.0) Red Blood Count 4.27 x10^6/uL (3.50-5.40) 3.32 x10^6/uL (3.50-5.40) Hemoglobin 13.3 g/dL (12.0-15.5) 10.7 g/dL (12.0-15.5) Hematocrit 39.1 % (36.0-47.0) 30.5 % (36.0-47.0) Mean Corpuscular Volume 91 fL (79-100) 92 fL (79-100) Mean Corpuscular Hemoglobin 31 pg (25-35) 32 pg (25-35) Mean Corpuscular Hemoglobin Concent 34 g/dL (31-37) 35 g/dL (31-37) Red Cell Distribution Width 15.7 % (11.5-14.5) 15.3 % (11.5-14.5) Platelet Count 233 x10^3/uL (140-400) 184 x10^3/uL (140-400) Neutrophils (%) (Auto) 76 % (31-73) 69 % (31-73) Lymphocytes (%) (Auto) 14 % (24-48) 19 % (24-48) Monocytes (%) (Auto) 9 % (0-9) 11 % (0-9) Eosinophils (%) (Auto) 1 % (0-3) 1 % (0-3) Basophils (%) (Auto) 0 % (0-3) 0 % (0-3) Neutrophils # (Auto) 7.7 x10^3uL (1.8-7.7) 4.8 x10^3uL (1.8-7.7) Lymphocytes # (Auto) 1.4 x10^3/uL (1.0-4.8) 1.3 x10^3/uL (1.0-4.8) Monocytes # (Auto) 0.9 x10^3/uL (0.0-1.1) 0.8 x10^3/uL (0.0-1.1) Eosinophils # (Auto) 0.1 x10^3/uL (0.0-0.7) 0.0 x10^3/uL (0.0-0.7) Basophils # (Auto) 0.0 x10^3/uL (0.0-0.2) 0.0 x10^3/uL (0.0-0.2) Prothrombin Time 13.9 SEC (11.7-14.0) Prothromb Time International Ratio 1.1 (0.8-1.1) Activated Partial Thromboplast Time 32 SEC (24-38) Sodium Level 131 mmol/L (136-145) 134 mmol/L (136-145) 133 mmol/L (136-145) Potassium Level 4.6 mmol/L (3.5-5.1) 3.9 mmol/L (3.5-5.1) 4.1 mmol/L (3.5-5.1) Chloride Level 96 mmol/L (98-107) 102 mmol/L (98-107) 103 mmol/L (98-107) Carbon Dioxide Level 27 mmol/L (21-32) 24 mmol/L (21-32) 24 mmol/L (21-32) Anion Gap 8 (6-14) 8 (6-14) 6 (6-14) Blood Urea Nitrogen 22 mg/dL (7-20) 19 mg/dL (7-20) 15 mg/dL (7-20) Creatinine 1.3 mg/dL (0.6-1.0) 1.1 mg/dL (0.6-1.0) 1.1 mg/dL (0.6-1.0) Estimated GFR (Cockcroft-Gault) 38.6 46.8 46.8 Glucose Level 98 mg/dL (70-99) 84 mg/dL (70-99) 86 mg/dL (70-99) Calcium Level 9.7 mg/dL (8.5-10.1) 8.7 mg/dL (8.5-10.1) 7.9 mg/dL (8.5-10.1) Total Bilirubin 0.8 mg/dL (0.2-1.0) 0.4 mg/dL (0.2-1.0) Direct Bilirubin 0.2 mg/dL (0.0-0.2) Aspartate Amino Transf (AST/SGOT) 33 U/L (15-37) 21 U/L (15-37) Alanine Aminotransferase (ALT/SGPT) 27 U/L (14-59) 16 U/L (14-59) Alkaline Phosphatase 85 U/L (46-116) 59 U/L (46-116) Total Protein 7.9 g/dL (6.4-8.2) 5.6 g/dL (6.4-8.2) Albumin 4.0 g/dL (3.4-5.0) 2.6 g/dL (3.4-5.0) BUN/Creatinine Ratio 14 (6-20) Albumin/Globulin Ratio 0.9 (1.0-1.7) Laboratory Tests Test 12/02/17 06:20 White Blood Count 7.0 x10^3/uL (4.0-11.0) Red Blood Count 3.32 x10^6/uL (3.50-5.40) Hemoglobin 10.7 g/dL (12.0-15.5) Hematocrit 30.5 % (36.0-47.0) Mean Corpuscular Volume 92 fL (79-100) Mean Corpuscular Hemoglobin 32 pg (25-35) Mean Corpuscular Hemoglobin Concent 35 g/dL (31-37) Red Cell Distribution Width 15.3 % (11.5-14.5) Platelet Count 184 x10^3/uL (140-400) Neutrophils (%) (Auto) 69 % (31-73) Lymphocytes (%) (Auto) 19 % (24-48) Monocytes (%) (Auto) 11 % (0-9) Eosinophils (%) (Auto) 1 % (0-3) Basophils (%) (Auto) 0 % (0-3) Neutrophils # (Auto) 4.8 x10^3uL (1.8-7.7) Lymphocytes # (Auto) 1.3 x10^3/uL (1.0-4.8) Monocytes # (Auto) 0.8 x10^3/uL (0.0-1.1) Eosinophils # (Auto) 0.0 x10^3/uL (0.0-0.7) Basophils # (Auto) 0.0 x10^3/uL (0.0-0.2) Sodium Level 133 mmol/L (136-145) Potassium Level 4.1 mmol/L (3.5-5.1) Chloride Level 103 mmol/L (98-107) Carbon Dioxide Level 24 mmol/L (21-32) Anion Gap 6 (6-14) Blood Urea Nitrogen 15 mg/dL (7-20) Creatinine 1.1 mg/dL (0.6-1.0) Estimated GFR (Cockcroft-Gault) 46.8 BUN/Creatinine Ratio 14 (6-20) Glucose Level 86 mg/dL (70-99) Calcium Level 7.9 mg/dL (8.5-10.1) Total Bilirubin 0.4 mg/dL (0.2-1.0) Aspartate Amino Transf (AST/SGOT) 21 U/L (15-37) Alanine Aminotransferase (ALT/SGPT) 16 U/L (14-59) Alkaline Phosphatase 59 U/L (46-116) Total Protein 5.6 g/dL (6.4-8.2) Albumin 2.6 g/dL (3.4-5.0) Albumin/Globulin Ratio 0.9 (1.0-1.7) Allergies Allergies Coded Allergies Type Severity Reaction Last Updated Verified iodine Allergy Intermediate 08/26/16 Yes Disposition/Orders: D/C to Home w/ HH DONALD COCHRAN MD Dec 02, 2017 14:07
--- NOTE | 2017-12-02 14:09 | DISCH ---
DISCHARGE INSTRUCTIONS Condition on Discharge Condition on Discharge: Stable Activity After Discharge Activity Instructions for Disc: Activity as tolerated, Progressive ambulation Bathing Instructions: Shower-keep dressing dry Lifting Instructions after Dis: No heavy lifting, No pulling or pushing, Do not lift >10 pounds Exercise Instruction after Dis: Walk 10 min, 3 x per day Driving Instructions after Dis: Do not drive Weight Bearing Status after Di: As tolerated Diet after Discharge Diet after Discharge: Cardiac, Regular Wound Incision Care Wound Care Equipment: Dressings Checks after Discharge Checks after discharge: Check blood press - daily Community/Resources/Services Services at Discharge: Home Health Care Services, Home Delivered Meals, PT EVALUATE & TREAT, OT Evaluate & Treat, RN Services Contacting the DR. after DC Call your doctor for: If your condition worsens Treatment/Equipment after DC Adaptive Equipment Issued: DONALD Gonzalez MD Dec 02, 2017 14:09
[2017-12-02 15:00] VITALS: BP 120/59
== END 2017-12-02 16:15 | disposition home health service (06) | DRG 253 ==
LOC: ER 12:23 → 4 NORTH 16:05
PROVIDERS: ADMIT Internal Medicine; ATTEND Internal Medicine
PROC: 03U Upper Arteries, Supplement (ICD-10-PCS; 2017-12-01)
PROC: 05BD0ZZ Excision of Right Cephalic Vein, Open Approach (ICD-10-PCS; 2017-12-01)
PROC: 03BB0ZZ Excision of Right Radial Artery, Open Approach (ICD-10-PCS; principal; 2017-12-01 08:00)
DX: T81.718A Complication of other artery following a procedure, not elsewhere classified, initial encounter (principal); E87.1 Hypo-osmolality and hyponatremia; I72.1 Aneurysm of artery of upper extremity; M62.50 Muscle wasting and atrophy, not elsewhere classified, unspecified site; I10 Essential (primary) hypertension; E03.9 Hypothyroidism, unspecified; E78.00 Pure hypercholesterolemia, unspecified; E78.5 Hyperlipidemia, unspecified; I25.10 Atherosclerotic heart disease of native coronary artery without angina pectoris; I48.91 Unspecified atrial fibrillation; F41.9 Anxiety disorder, unspecified; M19.90 Unspecified osteoarthritis, unspecified site; Y83.8 Other surgical procedures as the cause of abnormal reaction of the patient, or of later complication, without mention of misadventure at the time of the procedure; J30.9 Allergic rhinitis, unspecified; Z79.02 Long term (current) use of antithrombotics/antiplatelets; Z79.82 Long term (current) use of aspirin; I25.2 Old myocardial infarction; Z82.49 Family history of ischemic heart disease and other diseases of the circulatory system; Z95.5 Presence of coronary angioplasty implant and graft; Z90.49 Acquired absence of other specified parts of digestive tract; Z91.041 Radiographic dye allergy status; Y92.89 Other specified places as the place of occurrence of the external cause
CPT/HCPCS: 36415; 80048; 80053; 80076; 85025; 85610; 85730; 93931; J0690; J1100; J1644; J2001; J2370; J2405; J2704; J3010; J7030; J7040; 99285-25